=== PATIENT | female | born 1955 | race Caucasian/White ===

== ENCOUNTER 2016-04-16 18:41 | Emergency (ER) | payer OTHER ==
[~2016-04-16] VITALS: Ht 165.1 cm; Wt 116.0 kg
[2016-04-16 18:47] VITALS: TEMP 36.7; Ht 165.1 cm; Wt 116.0 kg
[2016-04-16 19:12] LABS: BASO % 0.2 %; BASO ABS # 0.03 K/uL (0-0.2); COMPLETE YES; EOS % 0.8 %; HEMATOCRIT 47.4 % (37-47); IG% 0.2 %; LYMPH % 13.3 %; MEAN CELL VOLUME 88.8 fL (80-100); MEAN CORPUSCULAR HEMOGLOBIN 30.1 pg (25-34); MONO % 9.7 %; NEUT % 75.8 %; PLATELET COUNT 251 K/uL (130-400); RED BLOOD COUNT 5.34 M/uL (4.2-5.4); WHITE BLOOD COUNT 13.54 K/uL (4.8-10.8)
[2016-04-16 19:15] LABS: URINE APPEARANCE CLEAR (CLEAR); URINE BILIRUBIN NEG (NEG); URINE COLOR YELLOW; URINE EPITHELIAL CELL AUTO 20-30 /lpf (0-5); URINE NITRITE NEG (NEG); URINE PH 7.5 (4.5-7.5); URINE SPECIFIC GRAVITY 1.004 (1.000-1.030); UROBILINOGEN NEG (NEG); ZZUR CULT IF INDIC CLEAN CATCH NO
[2016-04-16 19:27] LABS: BUN/CREATININE RATIO 9.7 (10-20); CALCIUM 9.3 mg/dl (8.5-10.1); POTASSIUM 3.3 mmol/L (3.5-5.1)
[2016-04-16 19:28] LABS: MANUAL MICROSCOPIC REQUIRED? NO; REVIEW REQ? NO
[2016-04-16] MEDS ORDERED: MoRPHine SULFATE 10 MG/ML CARP/VIAL IV STA (19:32)
[2016-04-16] MEDS ORDERED: SODIUM CHLORIDE 0.9% 1000ML 1,000 ML IV STA (19:34)
[2016-04-16] MEDS ORDERED: ONDANSETRON INJ 2 MG/ML 2 ML VIAL IV STA (19:41)
[2016-04-16] MEDS ORDERED: CARV3.122 PO (20:00)
[2016-04-16] MEDS ORDERED: ONDA4TAB46 PO (20:00)
[2016-04-16] MEDS ORDERED: AMLO-114 PO (20:00)
[2016-04-16] MEDS ORDERED: OXYC-164 PO (20:00)
[2016-04-16] MEDS ORDERED: PRLSR20 PO (20:00)
[2016-04-16] MEDS ORDERED: ACET-1256 PO (20:00)
[2016-04-16] MEDS ORDERED: PEDICHW50 PO (20:00)
[2016-04-16] MEDS ORDERED: ALLO100T PO (20:00)
[2016-04-16] MEDS ORDERED: CITA40TA12 PO (20:00)
[2016-04-16] MEDS ORDERED: OPTIRAY 320 IV PRN (21:45)
--- NOTE | 2016-04-16 22:02 | DIAGNOSTIC IMAGING REPORT ---
CT OF THE ABDOMEN AND PELVIS WITH CONTRAST CLINICAL HISTORY: Left sided abdominal pain status post gastric bypass. COMPARISON STUDY: None. TECHNIQUE: Following IV administration of 117 mL of Optiray-320, axial images of the abdomen and pelvis were obtained from the lung bases to the proximal femurs. Images were reviewed in the axial, sagittal, and coronal planes. IV contrast was administered without complication. Oral contrast was administered. CT DOSE: 1612.32 mGy.cm FINDINGS: A 4 mm proximal left ureteral calculus results in mild left hydronephrosis. There is mild left perinephric infiltration. No additional ureteral calculi are identified. Note is made of a 3 mm calculus within the lower pole of the right kidney. The liver, spleen, adrenal glands and pancreas are unremarkable. There are findings consistent with gastric bypass. There is no evidence for a bowel obstruction. The appendix is normal. There is no lymphadenopathy. No suspicious skeletal lesions are identified. There is evidence for a ventral hernia repair with mesh. IMPRESSION: 1. 4 mm proximal left ureteral calculus with resultant mild left hydronephrosis and perinephric infiltration. 2. 3 mm right renal calculus. 4. Status post gastric bypass. No bowel obstruction. Normal appendix. Electronically signed by: Mendez Pastrana M.D. 04/16/2016 10:00 PM Dictated Date/Time: 04/16/2016 9:52 PM
[2016-04-16] MEDS ORDERED: TAMS0.4C38 PO (22:24)
[2016-04-16] MEDS ORDERED: TAMSULOSIN HCL 0.4 MG CAP PO ONE (22:30)
[2016-04-16 22:40] VITALS: BP 140/91; PULSE 80; O2SAT 94
--- NOTE | 2016-04-16 22:47 | EMERGENCY ROOM VISIT NOTE ---
History Report prepared by Elia: Donnie Penny Under the Supervision of: Dr. John Ramirez D.O. First contact with patient: 18:56 Chief Complaint: ABDOMINAL PAIN Stated Complaint: ABD PAIN Nursing Triage Summary: pt to the ED with c/o left sided abd pain and fullness that started today History of Present Illness The patient is a 60 year old female who presents to the Emergency Room with complaints of persistent left sided abdominal pain beginning about 3 hours ago. She notes she started with solid foods yesterday and had a normal bowel movement yesterday, but has not had a bowel movement today. She describes her pain as "pressure". She has had some dry heaving, and chills. The patient denies having any back pain or urinary symptoms. She tried an Enema which did not relieve her symptoms. The patient reports having a history of gastric bypass due to obesity in January of 2016, and a history of spinal stenosis. She states she still has her appendix. The patient has not taken any Tylenol or Motrin today. No fevers greater than 100.4, chest pain or shortness of breath. Source of History: patient Onset: about 3 hours ago Position: abdomen (left-sided) Quality: pressure Timing: other (persistent) Associated Symptoms: + chills, No back pain, No urinary symptoms Note: The patient reports having dry heaving. Review of Systems See HPI for pertinent positives & negatives. A total of 10 systems reviewed and were otherwise negative. Past Medical & Surgical Medical Problems: (1) History of spinal stenosis Surgical Problems: (1) History of gastric bypass Family History No pertinent family history stated. Current/Historical Medications Scheduled Allopurinol (Zyloprim), 100 MG PO BID Amlodipine (Norvasc), 10 MG PO DAILY Carvedilol (Coreg), 3.125 MG PO BID Citalopram Hydrobromide (Celexa), 40 MG PO DAILY Omeprazole (Prilosec), 20 MG PO DAILY Pediatric Multiple Vitamin W/ (Flintstones Chewable), 1 TAB PO BID Tamsulosin Hcl (Flomax), 0.4 MG PO DAILY Scheduled PRN Acetaminophen (Tylenol), 1,000 MG PO Q6 PRN for Pain Oxycodone Hcl (Oxycodone Hcl), 1 TAB PO QID PRN for Pain Allergies Coded Allergies: Tetanus Toxoid (Verified Allergy, Severe, SWOLLRN ARM, BLOTCHES, 04/16/16) Physical Exam Vital Signs Date Time Temp Pulse Resp B/P Pulse Ox O2 Delivery O2 Flow Rate FiO2 04/16/16 21:52 80 18 150/109 95 Room Air 04/16/16 20:33 97 18 161/103 97 Room Air 04/16/16 18:47 36.7 106 20 165/84 98 Room Air Physical Exam GENERAL: Sitting in bed, disheveled, nontoxic. EYE EXAM: normal conjunctiva OROPHARYNX: no exudate, no erythema, lips, buccal mucosa, and tongue normal and mucous membranes are moist NECK: supple, no nuchal rigidity, no adenopathy, non-tender LUNGS: Clear to auscultation. Normal chest wall mechanics HEART: no murmurs, S1 normal and S2 normal ABDOMEN: abdomen soft; mild diffuse tenderness; normo-active bowel sounds, no masses, no rebound or guarding. Multiple old abdominal incisions present. BACK: Back is symmetrical on inspection and there is no deformity, no midline tenderness, no CVA tenderness. SKIN: no rashes and no bruising UPPER EXTREMITIES: upper extremities are grossly normal. LOWER EXTREMITIES: No pitting edema. NEURO EXAM: Normal sensorium, cranial nerves II-XII grossly intact, normal speech, no gross weakness of arms, no gross weakness of legs. Gross sensation intact. Medical Decision & Procedures ER Provider Diagnostic Interpretation: Xray results per the radiologist and my interpretation. Other results have been interpreted by the radiologist and reviewed by me. CT OF THE ABDOMEN AND PELVIS WITH CONTRAST FINDINGS: A 4 mm proximal left ureteral calculus results in mild left hydronephrosis. There is mild left perinephric infiltration. No additional ureteral calculi are identified. Note is made of a 3 mm calculus within the lower pole of the right kidney. The liver, spleen, adrenal glands and pancreas are unremarkable. There are findings consistent with gastric bypass. There is no evidence for a bowel obstruction. The appendix is normal. There is no lymphadenopathy. No suspicious skeletal lesions are identified. There is evidence for a ventral hernia repair with mesh. IMPRESSION: 1. 4 mm proximal left ureteral calculus with resultant mild left hydronephrosis and perinephric infiltration. 2. 3 mm right renal calculus. 4. Status post gastric bypass. No bowel obstruction. Normal appendix. Electronically signed by: Mendez Pastrana M.D. 04/16/2016 10:00 PM Dictated Date/Time: 04/16/2016 9:52 PM Laboratory Results 04/16/16 19:00 Red Blood Count 5.34, Mean Corpuscular Volume 88.8, Mean Corpuscular Hemoglobin 30.1, Mean Corpuscular Hemoglobin Concent 34.0, Mean Platelet Volume 13.0, Neutrophils (%) (Auto) 75.8, Lymphocytes (%) (Auto) 13.3, Monocytes (%) (Auto) 9.7, Eosinophils (%) (Auto) 0.8, Basophils (%) (Auto) 0.2, Neutrophils # (Auto) 10.26, Lymphocytes # (Auto) 1.80, Monocytes # (Auto) 1.31, Eosinophils # (Auto) 0.11, Basophils # (Auto) 0.03 04/16/16 19:00 Test 04/16/16 19:00 04/16/16 19:05 White Blood Count 13.54 K/uL (4.8-10.8) Red Blood Count 5.34 M/uL (4.2-5.4) Hemoglobin 16.1 g/dL (12.0-16.0) Hematocrit 47.4 % (37-47) Mean Corpuscular Volume 88.8 fL (80-100) Mean Corpuscular Hemoglobin 30.1 pg (25-34) Mean Corpuscular Hemoglobin Concent 34.0 g/dl (32-36) Platelet Count 251 K/uL (130-400) Mean Platelet Volume 13.0 fL (7.4-10.4) Neutrophils (%) (Auto) 75.8 % Lymphocytes (%) (Auto) 13.3 % Monocytes (%) (Auto) 9.7 % Eosinophils (%) (Auto) 0.8 % Basophils (%) (Auto) 0.2 % Neutrophils # (Auto) 10.26 K/uL (1.4-6.5) Lymphocytes # (Auto) 1.80 K/uL (1.2-3.4) Monocytes # (Auto) 1.31 K/uL (0.11-0.59) Eosinophils # (Auto) 0.11 K/uL (0-0.5) Basophils # (Auto) 0.03 K/uL (0-0.2) RDW Standard Deviation 46.0 fL (36.4-46.3) RDW Coefficient of Variation 14.1 % (11.5-14.5) Immature Granulocyte % (Auto) 0.2 % Immature Granulocyte # (Auto) 0.03 K/uL (0.00-0.02) Anion Gap 12.0 mmol/L (3-11) Est Creatinine Clear Calc Drug Dose 78.0 ml/min Estimated GFR () 71.9 Estimated GFR (Non- 62.1 BUN/Creatinine Ratio 9.7 (10-20) Calcium Level 9.3 mg/dl (8.5-10.1) Total Bilirubin 0.6 mg/dl (0.2-1) Direct Bilirubin 0.2 mg/dl (0-0.2) Aspartate Amino Transf (AST/SGOT) 29 U/L (15-37) Alanine Aminotransferase (ALT/SGPT) 36 U/L (12-78) Alkaline Phosphatase 89 U/L (45-117) Total Protein 7.7 gm/dl (6.4-8.2) Albumin 3.7 gm/dl (3.4-5.0) Lipase 50 U/L (73-393) Urine Color YELLOW Urine Appearance CLEAR (CLEAR) Urine pH 7.5 (4.5-7.5) Urine Specific [place] 1.004 (1.000-1.030) Urine Protein NEG (NEG) Urine Glucose (UA) NEG (NEG) Urine Ketones TRACE (NEG) Urine Occult Blood 3+ (NEG) Urine Nitrite NEG (NEG) Urine Bilirubin NEG (NEG) Urine Urobilinogen NEG (NEG) Urine Leukocyte Esterase TRACE (NEG) Urine WBC (Auto) 1-5 /hpf (0-5) Urine RBC (Auto) >30 /hpf (0-4) Urine Hyaline Casts (Auto) 1-5 /lpf (0-5) Urine Epithelial Cells (Auto) 20-30 /lpf (0-5) Urine Bacteria (Auto) NEG (NEG) Laboratory results per my review. Medications Administered Medications (Trade) Dose Ordered Sig/Armani Route Start Time Stop Time Status Last Admin Dose Admin Morphine Sulfate 6 mg 6 mg NOW STAT IV 04/16/16 19:32 04/16/16 19:34 DC 04/16/16 19:44 6 MG Sodium Chloride (Nss 1000ml) 1,000 ml @ 999 mls/hr Q1H1M STAT IV 04/16/16 19:34 04/16/16 20:34 DC 04/16/16 19:44 999 MLS/HR Ondansetron HCl (Zofran Inj) 4 mg NOW STAT IV 04/16/16 19:41 04/16/16 19:42 DC 04/16/16 19:44 4 MG ED Course ED COURSE: Vital signs were reviewed and showed hypertensive, and tachycardic. The patients medical record was reviewed The above diagnostic studies were performed and reviewed. ED treatments and interventions as stated above. 1925: The patient was evaluated in room A2. A complete history and physical examination was performed. 1931: Ordered Morphine Sulfate 6 mg IV. 1933: Ordered NSS 1,000 ml @ 999 mls/hr IV. 1940: Ordered Zofran Inj 4 mg IV. 2101: I reassessed the patient and she is feeling better. 2229: Ordered Flomax Cap 0.4 mg PO. 2234: Upon reevaluation, the patient is hemodynamically stable.I discussed my findings with the patient and she understands and agrees with the treatment plan. Based on the patients age, coexisting illnesses, exam and lab findings the decision to treat as an outpatient was made. The patient remained stable while under my care. The patient appeared well at the time of discharge. Medical Decision Differential diagnoses includes but is not limited to gastritis, peptic ulcer disease, GERD, gallbladder disease, pancreatitis, small bowel obstruction, acute coronary syndrome, pericarditis, ischemic bowel, irritable bowel disease, irritable bowel syndrome, appendicitis, diverticulitis, malignancy, hernia, urinary tract infection, torsion, /ectopic (if female), perforation, trauma, infectious. Patient is a 58-year-old female says past gastric bypass that presents the ER for abdominal pain and no bowel movement today. Vitals are stable without significant fever greater than 100.4. Abdominal exam is benign. No signs peritonitis. Pain is located on the left side of her abdomen going through to her back. CT of her abdomen pelvis performed with IV and oral contrast shows a 3-4 millimeter left proximal renal stone with mild hydronephrosis. UA was clear with exception of hematuria. Pain was controlled with IV narcotics. She is given a small dose Zofran. She felt significantly better. There is no signs of infection on her UA. She was updated in regards to the findings and was comfortable. She is discharged with Flomax and to follow up with urology. She notes she does have OxyIR at home and consequently I did not give her any additional narcotics as she notes that she has a 3 month supply of this at this time. I stressed the importance for returning for any fevers, persistent nausea vomiting, unable to eat or drink, or any other concerning signs or symptoms from her standpoint. She is given urology's phone number to call tomorrow to set up appointment. I do favor the leukocytosis likely secondary to the vomiting/pain. Discussed with Pt concerning signs and symptoms to watch out for. Pt was instructed to follow up with their PCP and discussed with the patient their option to return to the ED at anytime for persistent or worsening symptoms. The appropriate anticipatory guidance and out-patient management, including indications for return to the emergency department, were explained at length to the patient and understood. Impression Primary Impression: Renal colic Additional Impressions: Hypokalemia Leukocytosis Scribe Attestation The scribe's documentation has been prepared under my direction and personally reviewed by me in its entirety. I confirm that the note above accurately reflects all work, treatment, procedures, and medical decision making performed by me. Departure Information Dispostion Home / Self-Care Prescriptions Tamsulosin Hcl (FLOMAX) 0.4 Mg Cap 0.4 MG PO DAILY, #10 CAP Prov: John Ramirez, 04/16/16 Referrals Bernard Dooley M.D. (PCP) Patient Instructions ED Stone Renal W Colic, My [facility] Additional Instructions Please follow up with your primary care doctor with in the next 24 hours. Any worsening of your symptoms, please return to the ED immediately. This includes any fevers greater than 100.4, persistent nausea vomiting, worsening abdominal pain, unable to keep down your narcotics, or any other concerning signs or symptoms from your standpoint. Again if you have a fever greater than 100.4F he needs to immediately return to the ER. You were given medications during this visit that will inhibit your ability to drive, operate machinery and work. Please do NOT drive, operate machinery or work for the next 12hrs. Please take Flomax as prescribed. Please follow up with urology and call them tomorrow morning to schedule appointment. Problem Qualifiers Additional Impressions: Leukocytosis Leukocytosis type: unspecified Qualified Codes: D72.829 - Elevated white blood cell count, unspecified
== END 2016-04-16 22:41 | disposition home or self-care (01) ==
LOC: C.EDB 18:42 → C.EDA 22:41
DX: N23 Unspecified renal colic (principal); N13.30 Unspecified hydronephrosis; E87.6 Hypokalemia; D72.829 Elevated white blood cell count, unspecified; E66.9 Obesity, unspecified; Z98.84 Bariatric surgery status; Z79.899 Other long term (current) drug therapy

== ENCOUNTER → 2016-07-23 | Outpatient (CLI) | payer OTHER ==
[~2016-07-23] MED LIST: ACET-1256 PO; ALLO100T PO; AMLO-114 PO; CARV3.122 PO; CITA40TA12 PO; OXYC-164 PO; PEDICHW50 PO; PRLSR20 PO
== END | disposition home or self-care (01) ==
LOC: C.MAMM 10:51
PROVIDERS: ATTEND Orthopaedic Surgery
DX: M81.0 Age-related osteoporosis without current pathological fracture (principal)

== ENCOUNTER 2019-01-23 15:35 | Inpatient (IN) ==
[2019-01-23] MEDS ORDERED: SODIUM CHLORIDE 0.9% 1000ML 1,000 ML IV ONE ×2 (15:56→18:59)
[2019-01-23] MEDS ORDERED: ACETAMINOPHEN 1,000 MG/100 ML VIAL IV STA (15:56)
--- NOTE | 2019-01-23 16:17 | XRay Report ---
XR chest 1V portable HISTORY: 63 years-old Female Sepsis acute sepsis COMPARISON: CT abdomen pelvis 04/16/2016 TECHNIQUE: Portable AP view of the chest FINDINGS: Cardiomediastinal and hilar silhouettes are within normal limits. Minimal linear subsegmental left urszula ng base atelectasis. There is no pneumothorax, pleural effusion, focal airspace consolidation or over t pulmonary edema. Bones of the chest appear grossly intact. Mild convex right curvature of the midth oracic spine. IMPRESSION: No acute process. The above report was generated using voice recognition software. It may contain grammatical, syntax o r spelling errors. Electronically signed by: Duc Sanchez M.D. 01/23/2019 4:16 PM
[2019-01-23 16:30] LABS: Hematocrit (blood only) 41.5 % (37-47); Hemoglobin 13.8 g/dL (12.0-16.0); Mean Corpuscular Hemoglobin 30.3 pg (25-34); Mean Corpuscular Hgb Conc 33.3 g/dL (32-36); Mean Corpuscular Volume 91.2 fL (80-100); Mean Platelet Volume 12.6 fL (7.4-10.4); Platelet Count 172 K/uL (130-400); RDW Coefficient of Variation 14.2 % (11.5-14.5); RDW Standard Deviation 47.4 fL (36.4-46.3); Red Blood Count 4.55 M/uL (4.2-5.4)
[2019-01-23 16:41] LABS: INR 1.1 (0.9-1.1); Partial Thromboplastin Ratio 1.2; Partial Thromboplastin Time 33.6 Seconds (21.0-31.0)
--- NOTE | 2019-01-23 16:46 | CT Scan Report ---
ABDOMEN AND PELVIS CT WITHOUT CONTRAST CT DOSE: 1252.20 mGy.cm HISTORY: Acute right lower quadrant and right flank pain with fever febrile tachy r cva tenderness r lq pain TECHNIQUE: Multiaxial CT images of the abdomen and pelvis were performed without contrast. A dose lo wering technique was utilized adhering to the principles of ALARA. COMPARISON STUDY: CT abdomen and pelvis 04/16/2016 FINDINGS: Lung bases are generally clear. There is no pneumatosis or pneumoperitoneum. Imaged inferior cardiac chambers appear unremarkable. Limited evaluation of the solid abdominal organs without the use of IV contrast. Mild to moderate pneumobilia. Common bile duct is mildly dilated at 8 mm. No choledocholith iasis identified. Mild gallbladder distention with equivocal gallbladder wall thickening, gallbladder sludge and cholelithiasis. Liver is otherwise unremarkable. Spleen and adrenal glands are within nor mal limits. Moderate analyzed pancreatic atrophy. Nonspecific bilateral perinephric stranding. No renal or ureteral calculi or significant obstructive uropathy identified. There is suggestion of mild bilateral urothelial thickening of the collecting sy stems. Partial distention of the urinary bladder. Uterus and adnexa are unremarkable. Calcified plaqu e of the abdominal aorta without aneurysm. No adenopathy. Postoperative changes from prior gastric by pass. No small bowel obstruction. There is no bowel wall thickening. Noninflamed appendix. Postoperat lisette changes of the ventral abdominal wall with mild progressive stranding with slightly increased att enuation of the tissues of the anterior subcutaneous wall. No drainable fluid collection. Degenerativ e changes of the spine, pelvis and hips. Lumbar levoscoliosis. No acute fracture identified. Grade 1 anterolisthesis L4 on L5 is likely degenerative. IMPRESSION: 1. No renal or ureteral calculi or obstructive uropathy. 2. Nonspecific bilateral perinephric stranding with suggestion of bilateral urothelial thickening, ri ght greater than left. Correlate with urinalysis to exclude infectious etiology. 3. Cholelithiasis with gallbladder sludge,, gallbladder distention and equivocal wall thickening. Thi s finding could be correlated with right upper quadrant abdominal ultrasound and clinical evaluation to exclude acute cholecystitis. 4. Progressive subcutaneous stranding of the lower anterior abdominal wall may be related to scarring from prior surgery with infectious or posttraumatic etiology also within the differential. 5. Additional findings as above. Electronically signed by: Duc Sanchez M.D. 01/23/2019 4:44 PM
[2019-01-23 16:47] LABS: Albumin Level 2.4 gm/dl (3.4-5.0); BUN Creatinine Ratio 22.5 (10-20); Bilirubin Direct 0.3 mg/dl (0-0.2); Calcium 8.8 mg/dl (8.5-10.1); Creatinine Clr Calc Pharmacy 57.5 ml/min; Est GFR (African American) 53.3; Est GFR (Non-African American) 45.9; Magnesium 2.1 mg/dl (1.8-2.4); Potassium 3.2 mmol/L (3.5-5.1)
[2019-01-23 16:49] LABS: Basophils # (auto) 0.01 K/uL (0-0.2); Basophils % (auto) 0.1 %; Dohle Bodies 1+; Eosinophils # (auto) 0.01 K/uL (0-0.5); Eosinophils % (auto) 0.1 %; Immature Granulocytes # (auto) 0.04 K/uL (0.00-0.02); Immature Granulocytes % (auto) 0.3 %; Lymphocytes % (auto) 4.4 %; Monocytes # (auto) 1.43 K/uL (0.11-0.59); Monocytes % (auto) 10.5 %; Neutrophils # (auto) 11.51 K/uL (1.4-6.5); Neutrophils % (auto) 84.6 %
[2019-01-23 16:50] LABS: Bilirubin,Total 0.7 mg/dl (0.2-1); Total Protein 7.1 gm/dl (6.4-8.2)
[2019-01-23 16:57] LABS: Appearance Urine Cloudy (Clear); Bacteria Urine Automated 3+ (Negative); Bilirubin Urine Negative (Negative); Blood Urine 3+ (Negative); Cast Urine Automated 0 /lpf (0-5); Color Urine Yellow; Epithelial Cell Urine Auto 20-30 /lpf (0-5); Glucose Urine UA Negative (Negative); Ketones Urine 1+ (Negative); Leukocyte Esterase Urine 3+ (Negative); Nitrite Urine Negative (Negative); Protein Urine 2+ (Negative); Specific Gravity Urine 1.015 (1.000-1.030); Urobilinogen Urine Negative (Negative); WBC Urine Automated >30 /hpf (0-5); pH Urine 5.5 (4.5-7.5)
[2019-01-23 17:31] LABS: Influenza A virus by PCR Neg for Influ A (Neg); Influenza B virus by PCR Neg for Influ B (Neg)
[2019-01-23] MEDS ORDERED: cefTRIAXone SODIUM 1,000 MG/50 ML BAG IV STA (17:31)
--- NOTE | 2019-01-23 18:18 | Ultrasound Report ---
US gallbladder HISTORY: 63 years-old Female ro rere acute right flank and right upper quadrant abdominal pain COMPARISON: CT abdomen and pelvis of same day TECHNIQUE: Multiple real-time sonographic images of the abdominal right upper quadrant were obtained assessing grayscale appearance and color flow FINDINGS: Pneumobilia redemonstrated. Common bile duct is mildly dilated measuring 1.0 cm. No choledocholithias is identified. No focal hepatic mass lesion. There is mild intrahepatic biliary ductal dilation. Gall bladder distention with moderate cholelithiasis and intraluminal gallbladder sludge. Bladder wall shannon sures in the upper limits of normal at 3 mm. No definite pericholecystic fluid. Sonographic Mccoy si gn reported as negative. Imaged right kidney is unremarkable without hydronephrosis. IMPRESSION: 1. Distended gallbladder filled with sludge and cholelithiasis is noted with the wall measuring in th e upper limits of normal. There is no definite pericholecystic fluid and the sonographic Mccoy sign was reported as negative. Findings are equivocal for acute cholecystitis. Correlate clinically. 2. Mild intrahepatic and extrahepatic biliary ductal dilation with pneumobilia. Findings may be secon dahlia to incompetent sphincter of Oddi versus gas forming organism with cholangitis. Correlate clinica lly.. The above report was generated using voice recognition software. It may contain grammatical, syntax o r spelling errors. Electronically signed by: Duc Sanchez M.D. 01/23/2019 6:16 PM
[2019-01-23] MEDS ORDERED: PIPERACILLIN/TAZOBACTAM 4.5 GM/120 ML BAG IV ONE (18:32)
[2019-01-23] MEDS ORDERED: ACETAMINOPHEN 325 MG TAB PO PRN (18:55)
--- NOTE | 2019-01-23 19:10 | History & Physical Report ---
Date of Service This is a 63 year old female who was in usual state of health 2 weeks ago and the developing fevers at least for 4 days and there was association with right upper abdomen pain and in regards to the fever she was was taking aspirin as antipyretic. Patient reports poor oral appetite. Instead of solid food, she has been ingesting liquids. does not associate eating with exacerbating the abdominal pain. denies vomiting. Patient noted to have fever and tachycardia in the ED. patient denies chest pain. no palpitations. her heart rates improved with IV fluids. patient breathing on room air. denies shortness of breath. denies changes in urination or with bowel movements. no headache. no dizziness Denies allergy history Family History: denies pertinent family history January 23, 2019 Assessment & Plan (1) Acute cholecystitis: -This is a 63 year old female who was in usual state of health 2 weeks ago and the developing fevers at least for 4 days and there was association with right upper abdomen pain and in regards to the fever she was was taking aspirin as antipyretic -in the ED, elevated body temperature of 38.2 F -CT abdomen on admission: "Cholelithiasis with gallbladder sludge, gallbladder distention and equivocal wall thickening. This finding could be correlated with right upper quadrant abdominal ultrasound and clinical evaluation to exclude acute cholecystitis." -in context of imaging and clinical findings with fever, patient likely has acute cholecystitis. -labs of normal bilirubin with mildly elevated alkaline phosphatase does not not necessarily suggest choledocholithiasis and will request general surgery consultation for cholecystectomy. will defer to general surgery whether or not they would need any additional biliary imaging before proceeding -patient may have liquid diet for now and will keep NPO after midnight while awaiting general surgery evaluations -patient was given 1 liter of IV fluids and 1 dose of ceftriaxone and Zosyn in the ED, will continue IV Zosyn every 8 hours for now, give 1 more liter bolus of IV fluids and then low dose IV fluids per hour -prn acetaminophen for fever -monitor tachycardia on telemetry History of gastric bypass surgery in the past Acute Kidney Injury -admission creatine of 1.22 which is above patient's previous outpatient labs of 0.8 -IV fluids, follow renal function Hypertension -continue home dose amlodipine and carvedilol History of depression -currently normal affect -continue home dose duloxetine Obesity with BMI of 39.8 -outpatient follow up on weight control DVT ppx: SCDs for now Full Code Status Mother Fartun [phone] Kendall mcintyre be following the patient starting on 01/24/19 History of Present Illness Primary Care Provider: Bernard Dooley MD Allergies Allergy/AdvReac Type Severity Reaction Status Date / Time tetanus toxoid, adsorbed Allergy Severe SWOLLRN Verified 01/23/19 17:36 ARM, BLOTCHES Home Medications Home Medications Medication Instructions Recorded Confirmed Type amlodipine 5 mg PO DAILY 01/23/19 01/23/19 History carvedilol 6.25 mg PO BID 01/23/19 01/23/19 History duloxetine 30 mg PO DAILY 01/23/19 01/23/19 History Past Med/Surg History Medical History History of kidney stones (Chronic) History of spinal stenosis (Chronic) Surgical History Hx of gastric bypass (Chronic) Social History Feels Safe at Home: Yes Smoking Status: Never smoker Review of Systems Review of Systems: All systems reviewed & are unremarkable except as noted in HPI & below Physical Exam Constitutional: cooperative Eyes: PERRL, conjunctivae normal, anicteric sclerae EOM intact bilaterally ENMT: external ear and nose normal, oropharynx normal Neck: normal visual inspection Respiratory: normal respiratory effort, lungs clear to auscultation Cardiovascular: Rate/Rhythm: + tachycardic Gastrointestinal (Abdomen): Inspection/Auscultation: abdomen normal to inspection and normal bowel sounds right upper quadrant tenderness to palpation Musculoskeletal: Head/Neck/Chest: normocephalic and head atraumatic Neurologic: PERRL, EOMI, accommodation nl, no face palsy, no dysarthria CN's II-XI intact bilaterally Psychiatric: A+Ox3, euthymic affect Results & Data Vital Signs (Past 12 Hours) Vital Signs Temp Pulse Resp BP Pulse Ox 01/23/19 18:15 121 H 21 127/92 01/23/19 18:14 101 H 16 01/23/19 17:45 99 H 21 126/96 01/23/19 17:40 94 H 12 01/23/19 17:30 103 H 15 133/94 01/23/19 17:20 104 H 22 01/23/19 17:15 109 H 16 131/101 H 01/23/19 17:10 111 H 16 11/02/19 17:00 118 H 20 139/93 01/23/19 16:50 115 H 13 01/23/19 16:45 118 H 18 124/86 01/23/19 16:40 126 H 16 149/104 H 01/23/19 15:51 96 01/23/19 15:40 38.2 C H 116 H 18 120/81 93 Code Status & VTE Plan VTE Prophylaxis Plan VTE Prophylaxis will be ordered: Yes
[2019-01-23] MEDS ORDERED: POTASSIUM CHLORIDE 20 MEQ TABCR PO STA (19:19)
--- NOTE | 2019-01-23 19:48 | Emergency Department Note ---
Entered by Eloisa Schmidt acting as a scribe for Mathew Oliveira History of Present Illness General Chief complaint: Kidney Stone Stated complaint: KIDNEY STONE Time Seen by Provider: 01/23/19 15:47 Source: patient History of Present Illness Onset (ago): hour(s) (earlier this morning) Location: abdomen (suspected kidney stone) Pain Consistency: + other (episode) Maximum Pain Intensity: 6 Relieved By: + none Associated symptoms: + denies other symptoms (blood in urine, blood in stools, and back pain), + fever/chills, + nausea/vomiting (positive nausea, negative vomiting) and + other (shaking, shivering, and abdominal pain) Treatments prior to arrival: aspirin The patient is a 63 year old F who presents to the Emergency Room with complaints of an episode of a suspected kidney stone that occurred earlier this morning. She states that she is currently experiencing shaking, shivering, nausea, abdominal pain, and a fever. She notes that her fever was at 103. She adds that she took aspirin, 4 hours ago, for pain. She denies currently experiencing vomiting, blood in urine, blood in stools, and back pain. She notes that she has a history of previous kidney stones and a gastric bypass surgery. She denies a surgical history of an appendectomy or a cholecystectomy. Home Medications Home Medications Medication Instructions Recorded Confirmed Type amlodipine 5 mg PO DAILY 01/23/19 01/23/19 History carvedilol 6.25 mg PO BID 01/23/19 01/23/19 History duloxetine 30 mg PO DAILY 01/23/19 01/23/19 History Allergies Allergy/AdvReac Type Severity Reaction Status Date / Time tetanus toxoid, adsorbed Allergy Severe SWOLLRN Verified 01/23/19 17:36 ARM, BLOTCHES Past Med/Surg History Medical History History of kidney stones (Chronic) History of spinal stenosis (Chronic) Surgical History Hx of gastric bypass (Chronic) Social History Feels Safe at Home: Yes Smoking Status: Never smoker Review of Systems See HPI for pertinent positives & negatives. and A total of 10 systems reviewed and were otherwise negative Physical Exam Vital Signs Vital Signs - 24 hr 01/23/19 15:40 01/23/19 15:51 01/23/19 16:40 Temperature 38.2 C H Temperature Source Oral Sepsis Recent Fever Within 48 Hours No Sepsis Action Taken by Nursing No Action Required Pulse Rate 116 H 126 H Pulse Rhythm Regular Pulse Strength Normal Respiratory Rate 18 16 Respiratory Effort / Characteristics Non-Labored Respiratory Depth Normal Respiratory Pattern Regular Blood Pressure 120/81 149/104 H Blood Pressure Mean 94 119 Pulse Oximetry 93 96 Oxygen Delivery Method Room Air Room Air 01/23/19 16:45 01/23/19 16:50 01/23/19 17:00 Temperature Temperature Source Sepsis Recent Fever Within 48 Hours Sepsis Action Taken by Nursing Pulse Rate 118 H 115 H 118 H Pulse Rhythm Pulse Strength Respiratory Rate 18 13 20 Respiratory Effort / Characteristics Respiratory Depth Respiratory Pattern Blood Pressure 124/86 139/93 Blood Pressure Mean 98 108 Pulse Oximetry Oxygen Delivery Method 01/23/19 17:10 01/23/19 17:15 01/23/19 17:20 Temperature Temperature Source Sepsis Recent Fever Within 48 Hours Sepsis Action Taken by Nursing Pulse Rate 111 H 109 H 104 H Pulse Rhythm Pulse Strength Respiratory Rate 16 16 22 Respiratory Effort / Characteristics Respiratory Depth Respiratory Pattern Blood Pressure 131/101 H Blood Pressure Mean 111 Pulse Oximetry Oxygen Delivery Method 01/23/19 17:30 01/23/19 17:40 01/23/19 17:45 Temperature Temperature Source Sepsis Recent Fever Within 48 Hours Sepsis Action Taken by Nursing Pulse Rate 103 H 94 H 99 H Pulse Rhythm Pulse Strength Respiratory Rate 15 12 21 Respiratory Effort / Characteristics Respiratory Depth Respiratory Pattern Blood Pressure 133/94 126/96 Blood Pressure Mean 107 106 Pulse Oximetry Oxygen Delivery Method 01/23/19 18:14 01/23/19 18:15 Temperature Temperature Source Sepsis Recent Fever Within 48 Hours Sepsis Action Taken by Nursing Pulse Rate 101 H 121 H Pulse Rhythm Pulse Strength Respiratory Rate 16 21 Respiratory Effort / Characteristics Respiratory Depth Respiratory Pattern Blood Pressure 127/92 Blood Pressure Mean 103 Pulse Oximetry Oxygen Delivery Method GENERAL: She is oriented to person, place, and time. She appears well-developed and well-nourished. She does not appear distressed. HENT: Exam performed. - Head: Normocephalic and atraumatic. - Right Ear: External ear normal. No mastoid tenderness. - Left Ear: External ear normal. No mastoid tenderness. - Mouth/Throat: The oropharynx is clear and moist. No trismus in the jaw. No dental abscesses or uvula swelling. No oropharyngeal exudate or tonsillar abscesses. EYES: Conjunctivae and EOM are normal. Pupils are equal, round, and reactive to light. Right eye exhibits no discharge. Left eye exhibits no discharge. No scl eral icterus. NECK: Normal range of motion. Neck supple. No JVD present. No spinous process tenderness present. No carotid bruit present. No rigidity. No tracheal deviation and normal range of motion present. No Brudzinski's sign and no Kernig's sign noted. CV: Tachycardic rate, regular rhythm, normal heart sounds and intact distal pulses. There is no peripheral edema. Palpable radial pulses bue. PULM/CHEST: Effort normal and breath sounds normal. No respiratory distress. No stridor. She has no wheezes. She has no rales. Chest Wall: She exhibits no tenderness. ABD: The abdomen is soft. Bowel sounds are normal. She has no distension. No mass is present. There is right-sided CVA and RLQ tenderness. There is no rebound, no guarding, no Mccoy's sign and no tenderness at McBurney's point. R ovsig negative. Abdomen is obese. MUSC/SKEL: Normal range of motion. There is no peripheral edema, tenderness or deformity. LYMPH: No cervical adenopathy. NEURO: She is alert and oriented to person, place, and time. She has normal strength. No cranial nerve deficit or sensory deficit. Coordination and gait normal. GCS eye subscore is 4. GCS verbal subscore is 5. GCS motor subscore is 6. cerbellar tests wnl. SKIN: Skin is warm and dry. She is not diaphoretic. PSYCH: She has a normal mood and affect. Her behavior is normal. Judgment and thought content normal. Course 1548: The patient was evaluated in room A10. A complete history and physical exam was performed. 1830: Labs show leukocytosis of 13.6. Lactic acid within normal limits. CT of the abdomen showed no ureteral stones. Urine appears infected. Rocephin 1 g IV piggyback ordered. CT of the abdomen showed cholelithiasis with sludge and equivocal gallbladder wall thickening. Subsequent ultrasound of the right upper quadrant was performed. The ultrasound showed a distended gallbladder filled with sludge and gallstones. The wall of the gallbladder it was measuring at the upper limits of normal. Mccoy sign negative sonographically. There is also mild intrahepatic and extrahepatic biliary duct dilatation with pneumobilia. 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 On repeat assessment, the patient is not jaundiced. She still does have pain on palpation of right upper quadrant however Mccoy sign is negative. It is not thought that the patient is suffering from a sending cholangitis as she does not have any evidence of jaundice. I reviewed the patient's case with Dr. Pratt, [facility] [place] [place]. He states that the patient should go to medicine. He states that he will be on consult.I reviewed the patient's case with Dr. Brannon Hodges, [facility] Hospitalist. Dr. Hodges recommends treating the patient with Zosyn in addition to the Rocephin that is Farhat been given. Zosyn ordered. He will evaluate the patient for further management. Administered Medications Piperacillin Sod/Tazobactam Sod (Zosyn) 4.5 gm in 120 mls @ 30 mls/hr IV NOW ONE Stop: 01/23/19 22:31 Last Admin: 01/23/19 18:54 Dose: 30 mls/hr Documented by: [id number] Discontinued Medications Acetaminophen (Ofirmev) 1,000 mg in 100 mls @ 400 mls/hr IV NOW STA Stop: 01/23/19 16:10 Last Infusion: 01/23/19 17:00 Dose: 0 mls/hr Documented by: [id number] Admin: 01/23/19 16:36 Dose: 400 mls/hr Documented by: [id number] Sodium Chloride (Nss 1000ml) 1,000 mls @ 999 mls/hr IV .Q1H1M ONE Stop: 01/23/19 16:56 Last Infusion: 01/23/19 17:54 Dose: 0 mls/hr Documented by: [id number] Admin: 01/23/19 16:36 Dose: 999 mls/hr Documented by: [id number] Ceftriaxone Sodium (Rocephin) 1,000 mg in 50 mls @ 100 mls/hr IV NOW STA Stop: 01/23/19 18:00 Last Infusion: 01/23/19 18:52 Dose: 0 mls/hr Documented by: [id number] Admin: 01/23/19 18:15 Dose: 100 mls/hr Documented by: [id number] Potassium Chloride (Klor-Con M20) 40 meq PO NOW STA Stop: 11/02/19 19:20 Last Admin: 01/23/19 19:23 Dose: 40 meq Documented by: [id number] Medical Decision Making Medical Records Attestation: I reviewed the patient's medical records. Home Medications Current Medication List: was personally reviewed by me Laboratory Data Attestation: I reviewed the patient's lab results. Result diagrams: 01/23/19 16:16 01/23/19 16:16 Lab Results 01/23/19 01/23/19 01/23/19 Range/Units 16:16 16:16 16:16 WBC 13.60 H (4.8-10.8) K/uL RBC 4.55 (4.2-5.4) M/uL Hgb 13.8 (12.0-16.0) g/dL Hct 41.5 (37-47) % MCV 91.2 (80-100) fL MCH 30.3 (25-34) pg MCHC 33.3 (32-36) g/dL RDW Std Deviation 47.4 H (36.4-46.3) fL RDW Coeff of Samara 14.2 (11.5-14.5) % Plt Count 172 (130-400) K/uL MPV 12.6 H (7.4-10.4) fL Immature Gran % (Auto) 0.3 % Neut % (Auto) 84.6 % Lymph % (Auto) 4.4 % [place] % (Auto) 10.5 % Eos % (Auto) 0.1 % Baso % (Auto) 0.1 % Immature Gran # (Auto) 0.04 H (0.00-0.02) K/uL Neut # (Auto) 11.51 H (1.4-6.5) K/uL Lymph # (Auto) 0.60 L (1.2-3.4) K/uL [place] # (Auto) 1.43 H (0.11-0.59) K/uL Eos # (Auto) 0.01 (0-0.5) K/uL Baso # (Auto) 0.01 (0-0.2) K/uL Dohle Bodies 1+ PT 11.0 (9.0-12.0) Seconds INR 1.1 (0.9-1.1) APTT 33.6 H (21.0-31.0) Seconds PTT Ratio 1.2 Sodium (136-145) mmol/L Potassium (3.5-5.1) mmol/L Chloride (98-107) mmol/L Carbon Dioxide (21-32) mmol/L Anion Gap (3-11) BUN (7-18) mg/dl Creatinine (0.6-1.2) mg/dl Est Cr Clr Drug Dosing ml/min Est GFR ( Amer) Est GFR (Non-Af Amer) BUN/Creatinine Ratio (10-20) Glucose (70-99) mg/dl Lactate 1.2 (0.4-2.0) mmol/L Calcium (8.5-10.1) mg/dl Magnesium (1.8-2.4) mg/dl Total Bilirubin (0.2-1) mg/dl Direct Bilirubin (0-0.2) mg/dl AST (15-37) U/L ALT (12-78) U/L Alkaline Phosphatase (45-117) U/L Total Protein (6.4-8.2) gm/dl Albumin (3.4-5.0) gm/dl Lipase (73-393) U/L Urine Color Urine Appearance (Clear) Urine pH (4.5-7.5) Ur Specific [place] (1.000-1.030) Urine Protein (Negative) Urine Glucose (UA) (Negative) Urine Ketones (Negative) Urine Blood (Negative) Urine Nitrite (Negative) Urine Bilirubin (Negative) Urine Urobilinogen (Negative) Ur Leukocyte Esterase (Negative) Urine WBC (Auto) (0-5) /hpf Urine RBC (Auto) (0-4) /hpf U Hyaline Cast (Auto) (0-5) /lpf U Epithel Cells (Auto) (0-5) /lpf Urine Bacteria (Auto) (Negative) Urine Yeast Influenza Type A (PCR) (Neg) Influenza Type B (PCR) (Neg) 01/23/19 01/23/19 01/23/19 Range/Units 16:16 16:45 16:45 WBC (4.8-10.8) K/uL RBC (4.2-5.4) M/uL Hgb (12.0-16.0) g/dL Hct (37-47) % MCV (80-100) fL MCH (25-34) pg MCHC (32-36) g/dL RDW Std Deviation (36.4-46.3) fL RDW Coeff of Samara (11.5-14.5) % Plt Count (130-400) K/uL MPV (7.4-10.4) fL Immature Gran % (Auto) % Neut % (Auto) % Lymph % (Auto) % [place] % (Auto) % Eos % (Auto) % Baso % (Auto) % Immature Gran # (Auto) (0.00-0.02) K/uL Neut # (Auto) (1.4-6.5) K/uL Lymph # (Auto) (1.2-3.4) K/uL [place] # (Auto) (0.11-0.59) K/uL Eos # (Auto) (0-0.5) K/uL Baso # (Auto) (0-0.2) K/uL Dohle Bodies PT (9.0-12.0) Seconds INR (0.9-1.1) APTT (21.0-31.0) Seconds PTT Ratio Sodium 135 L (136-145) mmol/L Potassium 3.2 L (3.5-5.1) mmol/L Chloride 101 (98-107) mmol/L Carbon Dioxide 26 (21-32) mmol/L Anion Gap 8.0 (3-11) BUN 28 H (7-18) mg/dl Creatinine 1.26 H (0.6-1.2) mg/dl Est Cr Clr Drug Dosing 57.5 ml/min Est GFR ( Amer) 53.3 Est GFR (Non-Af Amer) 45.9 BUN/Creatinine Ratio 22.5 H (10-20) Glucose 163 H (70-99) mg/dl Lactate (0.4-2.0) mmol/L Calcium 8.8 (8.5-10.1) mg/dl Magnesium 2.1 (1.8-2.4) mg/dl Total Bilirubin 0.7 (0.2-1) mg/dl Direct Bilirubin 0.3 H (0-0.2) mg/dl AST 15 (15-37) U/L ALT 16 (12-78) U/L Alkaline Phosphatase 139 H (45-117) U/L Total Protein 7.1 (6.4-8.2) gm/dl Albumin 2.4 L (3.4-5.0) gm/dl Lipase 25 L (73-393) U/L Urine Color Yellow Urine Appearance Cloudy A (Clear) Urine pH 5.5 (4.5-7.5) Ur Specific [place] 1.015 (1.000-1.030) Urine Protein 2+ H (Negative) Urine Glucose (UA) Negative (Negative) Urine Ketones 1+ H (Negative) Urine Blood 3+ H (Negative) Urine Nitrite Negative (Negative) Urine Bilirubin Negative (Negative) Urine Urobilinogen Negative (Negative) Ur Leukocyte Esterase 3+ H (Negative) Urine WBC (Auto) >30 H (0-5) /hpf Urine RBC (Auto) 10-30 H (0-4) /hpf U Hyaline Cast (Auto) 0 (0-5) /lpf U Epithel Cells (Auto) 20-30 H (0-5) /lpf Urine Bacteria (Auto) 3+ H (Negative) Urine Yeast Not Reportable Influenza Type A (PCR) Neg for Influ A (Neg) Influenza Type B (PCR) Neg for Influ B (Neg) Imaging Data Radiologist's Impression: Radiology results as stated below per my review and the radiologist's interpretation: XR chest 1V portable HISTORY: 63 years-old Female Sepsis acute sepsis COMPARISON: CT abdomen pelvis 04/16/2016 TECHNIQUE: Portable AP view of the chest FINDINGS: Cardiomediastinal and hilar silhouettes are within normal limits. Minimal linear subsegmental left lung base atelectasis. There is no pneumothorax, pleural effusion, focal airspace consolidation or overt pulmonary edema. Bones of the chest appear grossly intact. Mild convex right curvature of the midthoracic spine. IMPRESSION: No acute process. The above report was generated using voice recognition software. It may contain grammatical, syntax or spelling errors. Electronically signed by: Duc Sanchez M.D. 01/23/2019 4:16 PM [address]EN AND PELVIS CT WITHOUT CONTRAST CT DOSE: 1252.20 mGy.cm HISTORY: Acute right lower quadrant and right flank pain with fever febrile tachy r cva tenderness rlq pain TECHNIQUE: Multiaxial CT images of the abdomen and pelvis were performed without contrast. A dose lowering technique was utilized adhering to the principles of ALARA. COMPARISON STUDY: CT abdomen and pelvis 04/16/2016 FINDINGS: Lung bases are generally clear. There is no pneumatosis or pneumoperitoneum. Imaged inferior cardiac chambers appear unremarkable. Limited evaluation of the solid abdominal organs without the use of IV contrast. Mild to moderate pneumobilia. Common bile duct is mildly dilated at 8 mm. No choledocholithiasis identified. Mild gallbladder distention with equivocal gallbladder wall thickening, gallbladder sludge and cholelithiasis. Liver is otherwise unremarkable. Spleen and adrenal glands are within normal limits. Moderate analyzed pancreatic atrophy. Nonspecific bilateral perinephric stranding. No renal or ureteral calculi or significant obstructive uropathy identified. There is suggestion of mild bilateral urothelial thickening of the collecting systems. Partial distention of the urinary bladder. Uterus and adnexa are unremarkable. Calcified plaque of the abdominal aorta without aneurysm. No adenopathy. Postoperative changes from prior gastric bypass. No small bowel obstruction. There is no bowel wall thickening. Noninflamed appendix. Postoperative changes of the ventral abdominal wall with mild progressive stranding with slightly increased attenuation of the tissues of the anterior subcutaneous wall. No drainable fluid collection. Degenerative changes of the spine, pelvis and hips. Lumbar levoscoliosis. No acute fracture identified. Grade 1 anterolisthesis L4 on L5 is likely dege nerative. IMPRESSION: 1. No renal or ureteral calculi or obstructive uropathy. 2. Nonspecific bilateral perinephric stranding with suggestion of bilateral urothelial thickening, right greater than left. Correlate with urinalysis to exclude infectious etiology. 3. Cholelithiasis with gallbladder sludge,, gallbladder distention and equivocal wall thickening. This finding could be correlated with right upper quadrant abdominal ultrasound and clinical evaluation to exclude acute cholecystitis. 4. Progressive subcutaneous stranding of the lower anterior abdominal wall may be related to scarring from prior surgery with infectious or posttraumatic etiology also within the differential. 5. Additional findings as above. Electronically signed by: Duc Sanchez M.D. 01/23/2019 4:44 PM US gallbladder HISTORY: 63 years-old Female ro rere acute right flank and right upper quadrant abdominal pain COMPARISON: CT abdomen and pelvis of same day TECHNIQUE: Multiple real-time sonographic images of the abdominal right upper quadrant were obtained assessing grayscale appearance and color flow FINDINGS: Pneumobilia redemonstrated. Common bile duct is mildly dilated measuring 1.0 cm. No choledocholithiasis identified. No focal hepatic mass lesion. There is mild intrahepatic biliary ductal dilation. Gallbladder distention with moderate cholelithiasis and intraluminal gallbladder sludge. Bladder wall measures in the upper limits of normal at 3 mm. No definite pericholecystic fluid. Sonographic Mccoy sign reported as negative. Imaged right kidney is unremarkable without hydronephrosis. IMPRESSION: 1. Distended gallbladder filled with sludge and cholelithiasis is noted with the wall measuring in the upper limits of normal. There is no definite pericholecystic fluid and the sonographic Mccoy sign was reported as negative. Findings are equivocal for acute cholecystitis. Correlate clinically. 2. Mild intrahepatic and extrahepatic biliary ductal dilation with pneumobilia. Findings may be secondary to incompetent sphincter of Oddi versus gas forming organism with cholangitis. Correlate clinically.. The above report was generated using voice recognition software. It may contain grammatical, syntax or spelling errors. Electronically signed by: Duc Sanchez M.D. 01/23/2019 6:16 PM Blood Pressure Blood Pressure Findings: Elevated blood pressure Blood Pressure Disposition: elevated BP felt to be situational MDM Narrative Labs show leukocytosis of 13.6. Lactic acid within normal limits. CT of the abdomen showed no ureteral stones. Urine appears infected. Rocephin 1 g IV piggyback ordered. CT of the abdomen showed cholelithiasis with sludge and equivocal gallbladder wall thickening. Subsequent ultrasound of the right upper quadrant was performed. The ultrasound showed a distended gallbladder filled with sludge and gallstones. The wall of the gallbladder it was measuring at the upper limits of normal. Mccoy sign negative sonographically. There is also mild intrahepatic and extrahepatic biliary duct dilatation with pneumobilia. 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 On repeat assessment, the patient is not jaundiced. She still does have pain on palpation of right upper quadrant however Mccoy sign is negative. It is not thought that the patient is suffering from a sending cholangitis as she does not have any evidence of jaundice. I reviewed the patient's case with Dr. Pratt, [facility] [place] [place]. He states that the patient should go to medicine. He states that he will be on consult.I reviewed the patient's case with Dr. Brannon Hodges, [facility] Hospitalist. Dr. Hodges recommends treating the patient with Zosyn in addition to the Rocephin that is Farhat been given. Zosyn ordered. He will evaluate the patient for further management. Impression & Plan UTI (urinary tract infection), Cholecystitis Discharge Plan Visit Data Chief Complaint: Kidney Stone Stated Complaint: KIDNEY STONE ED Provider: Mathew Oliveira Discharge Problem: UTI (urinary tract infection), Cholecystitis Patient Disposition: Admitted As Inpatient Forms Stand Alone Forms: My [facility] Prescriptions Prescriptions: No Action carvedilol 3.125 mg Tablet 6.25 mg PO BID RF: 0 amlodipine 5 mg Tablet 5 mg PO DAILY RF: 0 duloxetine 30 mg Capsule,Delayed Release(Dr/Ec) 30 mg PO DAILY RF: 0 Referrals Referrals: Bernard Dooley MD [Primary Care Provider] - Discharge Problem: UTI (urinary tract infection) Qualifiers: Urinary tract infection type: site unspecified Hematuria presence: with hematuria Qualified Code(s): N39.0 - Urinary tract infection, site not specified The scribe's documentation has been prepared under my direction and personally reviewed by me in its entirety. I confirm that the note above accurately reflects all work, treatment, procedures, and medical decision making performed by me.
--- NOTE | 2019-01-23 20:51 | Surgery Consultation ---
Date of Consultation January 23, 2019 Assessment & Plan (1) Pain: This patient has symptomatology that began a CVA tenderness and appears to have a urinary tract infection and on CT scan has fat stranding around the kidney that may be indicative of pyelonephritis. She also has a history of n ephrolithiasis. She had a temperature elevation to 103 which would be consistent with pyelonephritis. She does have right upper quadrant pain but that may be related to the kidney issue as well. She has a mildly dilated biliary tract etiology of which is unclear. The findings on ultrasound and CAT scan are somewhat indicative of a gallbladder issue but I am more suspicious that her symptoms are related to her tract. I would recommend a hepatobiliary scan to further delineate the possibility of acute cholecystitis. History of Present Illness Reason for Consultation: Back pain, abdominal pain, nausea Requesting Physician: Brannon Hodges MD Attending Physician: Brannon Hodges MD History of Present Illness Been asked by Dr. Hodges to see this 63-year-old female presented to the emergency room with a complaint of pain, fever and nausea. The patient states that the pain began with bilateral costovertebral angle pain. The discomfort was more on the right than on the left. It eventually then radiated around towards the anterior abdominal wall. This was associated with dysuria. She also developed fever with temperatures as high as 103 and had chills. It was at that point that she decided to come to the emergency room. At present she has pain now in the right upper abdomen but also in the right costovertebral angle area. She has a history of kidney stones with lithotripsy having most recently been performed in August. She had nausea with this but no vomiting. Prior to this she was unaware of her cholelithiasis. She originally had a gastric band placed but that failed and then she had gastric bypass surgery about 3 years ago after which she lost over 200 pounds. She also had an abdominoplasty to remove the redundant skin. Although the amount of food that she eats is limited she has not had to limit what she eats and has no fatty food intolerance. Allergies Allergy/AdvReac Type Severity Reaction Status Date / Time tetanus toxoid, adsorbed Allergy Severe SWOLLRN Verified 01/23/19 17:36 ARM, BLOTCHES Home Medications Home Medications Medication Instructions Recorded Confirmed Type amlodipine 5 mg PO DAILY 01/23/19 01/23/19 History carvedilol 6.25 mg PO BID 01/23/19 01/23/19 History duloxetine 30 mg PO DAILY 01/23/19 01/23/19 History Patient History Medical History History of kidney stones (Chronic) History of spinal stenosis (Chronic) Surgical History Hx of gastric bypass (Chronic) History of adjustable gastric banding Social History Feels Safe at Home: Yes Smoking Status: Never smoker Physical Exam Physical Exam: She has significant right CVA tenderness Constitutional: no acute distress Neck: trachea midline Respiratory: normal respiratory effort, lungs clear to auscultation Cardiovascular: Rate/Rhythm: regular rate and regular rhythm Gastrointestinal (Abdomen): Inspection/Auscultation: abdomen not distended Percussion/Palpation: + abdomen tender and abdomen soft Skin: no rashes, warm and dry Lymphatic: no cervical lymphadenopathy and no subclavicular lymphadenopathy Results & Data Vital Signs (Past 12 Hours) Vital Signs Temp Pulse Resp BP Pulse Ox 01/23/19 19:54 139/103 H 01/23/19 19:50 113 H 20 01/23/19 19:40 111 H 10 L 01/23/19 19:30 98 H 14 139/80 01/23/19 19:20 93 H 14 01/23/19 19:15 108 H 13 128/99 01/23/19 19:10 110 H 20 01/23/19 19:01 98 H 13 109/92 01/23/19 19:00 108 H 18 01/23/19 18:50 98 H 19 01/23/19 18:45 116 H 21 137/102 H 01/23/19 18:40 97 H 8 L 01/23/19 18:30 96 H 15 137/92 01/23/19 18:20 112 H 22 01/23/19 18:16 107 H 12 01/23/19 18:15 121 H 21 127/92 01/23/19 18:14 101 H 16 01/23/19 17:45 99 H 21 126/96 01/23/19 17:40 94 H 12 01/23/19 17:30 103 H 15 133/94 01/23/19 17:20 104 H 22 01/23/19 17:15 109 H 16 131/101 H 01/23/19 17:10 111 H 16 01/23/19 17:00 118 H 20 139/93 01/23/19 16:50 115 H 13 01/23/19 16:45 118 H 18 124/86 01/23/19 16:40 126 H 16 149/104 H 01/23/19 15:51 96 01/23/19 15:40 38.2 C H 116 H 18 120/81 93 Laboratory Results 01/23/19 01/23/19 01/23/19 Range/Units 16:45 16:45 16:16 WBC (4.8-10.8) K/uL RBC (4.2-5.4) M/uL Hgb (12.0-16.0) g/dL Hct (37-47) % MCV (80-100) fL MCH (25-34) pg MCHC (32-36) g/dL RDW Std Deviation (36.4-46.3) fL RDW Coeff of Samara (11.5-14.5) % Plt Count (130-400) K/uL MPV (7.4-10.4) fL Immature Gran % (Auto) % Neut % (Auto) % Lymph % (Auto) % [place] % (Auto) % Eos % (Auto) % Baso % (Auto) % Immature Gran # (Auto) (0.00-0.02) K/uL Neut # (Auto) (1.4-6.5) K/uL Lymph # (Auto) (1.2-3.4) K/uL [place] # (Auto) (0.11-0.59) K/uL Eos # (Auto) (0-0.5) K/uL Baso # (Auto) (0-0.2) K/uL Dohle Bodies PT (9.0-12.0) Seconds INR (0.9-1.1) APTT (21.0-31.0) Seconds PTT Ratio Sodium 135 L (136-145) mmol/L Potassium 3.2 L (3.5-5.1) mmol/L Chloride 101 (98-107) mmol/L Carbon Dioxide 26 (21-32) mmol/L Anion Gap 8.0 (3-11) BUN 28 H (7-18) mg/dl Creatinine 1.26 H (0.6-1.2) mg/dl Est Cr Clr Drug Dosing 57.5 ml/min Est GFR ( Amer) 53.3 Est GFR (Non-Af Amer) 45.9 BUN/Creatinine Ratio 22.5 H (10-20) Glucose 163 H (70-99) mg/dl Lactate (0.4-2.0) mmol/L Calcium 8.8 (8.5-10.1) mg/dl Magnesium 2.1 (1.8-2.4) mg/dl Total Bilirubin 0.7 (0.2-1) mg/dl Direct Bilirubin 0.3 H (0-0.2) mg/dl AST 15 (15-37) U/L ALT 16 (12-78) U/L Alkaline Phosphatase 139 H (45-117) U/L Total Protein 7.1 (6.4-8.2) gm/dl Albumin 2.4 L (3.4-5.0) gm/dl Lipase 25 L (73-393) U/L Urine Color Yellow Urine Appearance Cloudy A (Clear) Urine pH 5.5 (4.5-7.5) Ur Specific [place] 1.015 (1.000-1.030) Urine Protein 2+ H (Negative) Urine Glucose (UA) Negative (Negative) Urine Ketones 1+ H (Negative) Urine Blood 3+ H (Negative) Urine Nitrite Negative (Negative) Urine Bilirubin Negative (Negative) Urine Urobilinogen Negative (Negative) Ur Leukocyte Esterase 3+ H (Negative) Urine WBC (Auto) >30 H (0-5) /hpf Urine RBC (Auto) 10-30 H (0-4) /hpf U Hyaline Cast (Auto) 0 (0-5) /lpf U Epithel Cells (Auto) 20-30 H (0-5) /lpf Urine Bacteria (Auto) 3+ H (Negative) Urine Yeast Not Reportable Influenza Type A (PCR) Neg for Influ A (Neg) Influenza Type B (PCR) Neg for Influ B (Neg) 01/23/19 01/23/19 01/23/19 Range/Units 16:16 16:16 16:16 WBC 13.60 H (4.8-10.8) K/uL RBC 4.55 (4.2-5.4) M/uL Hgb 13.8 (12.0-16.0) g/dL Hct 41.5 (37-47) % MCV 91.2 (80-100) fL MCH 30.3 (25-34) pg MCHC 33.3 (32-36) g/dL RDW Std Deviation 47.4 H (36.4-46.3) fL RDW Coeff of Samara 14.2 (11.5-14.5) % Plt Count 172 (130-400) K/uL MPV 12.6 H (7.4-10.4) fL Immature Gran % (Auto) 0.3 % Neut % (Auto) 84.6 % Lymph % (Auto) 4.4 % [place] % (Auto) 10.5 % Eos % (Auto) 0.1 % Baso % (Auto) 0.1 % Immature Gran # (Auto) 0.04 H (0.00-0.02) K/uL Neut # (Auto) 11.51 H (1.4-6.5) K/uL Lymph # (Auto) 0.60 L (1.2-3.4) K/uL [place] # (Auto) 1.43 H (0.11-0.59) K/uL Eos # (Auto) 0.01 (0-0.5) K/uL Baso # (Auto) 0.01 (0-0.2) K/uL Dohle Bodies 1+ PT 11.0 (9.0-12.0) Seconds INR 1.1 (0.9-1.1) APTT 33.6 H (21.0-31.0) Seconds PTT Ratio 1.2 Sodium (136-145) mmol/L Potassium (3.5-5.1) mmol/L Chloride (98-107) mmol/L Carbon Dioxide (21-32) mmol/L Anion Gap (3-11) BUN (7-18) mg/dl Creatinine (0.6-1.2) mg/dl Est Cr Clr Drug Dosing ml/min Est GFR ( Amer) Est GFR (Non-Af Amer) BUN/Creatinine Ratio (10-20) Glucose (70-99) mg/dl Lactate 1.2 (0.4-2.0) mmol/L Calcium (8.5-10.1) mg/dl Magnesium (1.8-2.4) mg/dl Total Bilirubin (0.2-1) mg/dl Direct Bilirubin (0-0.2) mg/dl AST (15-37) U/L ALT (12-78) U/L Alkaline Phosphatase (45-117) U/L Total Protein (6.4-8.2) gm/dl Albumin (3.4-5.0) gm/dl Lipase (73-393) U/L Urine Color Urine Appearance (Clear) Urine pH (4.5-7.5) Ur Specific [place] (1.000-1.030) Urine Protein (Negative) Urine Glucose (UA) (Negative) Urine Ketones (Negative) Urine Blood (Negative) Urine Nitrite (Negative) Urine Bilirubin (Negative) Urine Urobilinogen (Negative) Ur Leukocyte Esterase (Negative) Urine WBC (Auto) (0-5) /hpf Urine RBC (Auto) (0-4) /hpf U Hyaline Cast (Auto) (0-5) /lpf U Epithel Cells (Auto) (0-5) /lpf Urine Bacteria (Auto) (Negative) Urine Yeast Influenza Type A (PCR) (Neg) Influenza Type B (PCR) (Neg) Diagnostic Findings ABDOMEN AND PELVIS CT WITHOUT CONTRAST CT DOSE: 1252.20 mGy.cm HISTORY: Acute right lower quadrant and right flank pain with fever febrile tachy r cva tenderness rlq pain TECHNIQUE: Multiaxial CT images of the abdomen and pelvis were performed without contrast. A dose lowering technique was utilized adhering to the principles of ALARA. COMPARISON STUDY: CT abdomen and pelvis 04/16/2016 FINDINGS: Lung bases are generally clear. There is no pneumatosis or pneumoperitoneum. Imaged inferior cardiac chambers appear unremarkable. Limited evaluation of the solid abdominal organs without the use of IV contrast. Mild to moderate pneumobilia. Common bile duct is mildly dilated at 8 mm. No choledocholithiasis identified. Mild gallbladder distention with equivocal gallbladder wall thickening, gallbladder sludge and cholelithiasis. Liver is otherwise unremarkable. Spleen and adrenal glands are within normal limits. Moderate analyzed pancreatic atrophy. Nonspecific bilateral perinephric stranding. No renal or ureteral calculi or significant obstructive uropathy identified. There is suggestion of mild bilateral urothelial thickening of the collecting systems. Partial distention of the urinary bladder. Uterus and adnexa are unremarkable. Calcified plaque of the abdominal aorta without aneurysm. No adenopathy. Postoperative changes from prior gastric bypass. No small bowel obstruction. There is no bowel wall thickening. Noninflamed appendix. Postoperative changes of the ventral abdominal wall with mild progressive stranding with slightly increased attenuation of the tissues of the anterior subcutaneous wall. No drainable fluid collection. Degenerative changes of the spine, pelvis and hips. Lumbar levoscoliosis. No acute fracture identified. Grade 1 anterolisthesis L4 on L5 is likely degenerative. IMPRESSION: 1. No renal or ureteral calculi or obstructive uropathy. 2. Nonspecific bilateral perinephric stranding with suggestion of bilateral urothelial thickening, right greater than left. Correlate with urinalysis to exclude infectious etiology. 3. Cholelithiasis with gallbladder sludge,, gallbladder distention and equivocal wall thickening. This finding could be correlated with right upper quadrant abdominal ultrasound and clinical evaluation to exclude acute cholecystitis. 4. Progressive subcutaneous stranding of the lower anterior abdominal wall may be related to scarring from prior surgery with infectious or posttraumatic etiology also within the differential. 5. Additional findings as above. US gallbladder HISTORY: 63 years-old Female ro rere acute right flank and right upper quadrant abdominal pain COMPARISON: CT abdomen and pelvis of same day TECHNIQUE: Multiple real-time sonographic images of the abdominal right upper quadrant were obtained assessing grayscale appearance and color flow FINDINGS: Pneumobilia redemonstrated. Common bile duct is mildly dilated measuring 1.0 cm. No choledocholithiasis identified. No focal hepatic mass lesion. There is mild intrahepatic biliary ductal dilation. Gallbladder distention with moderate cholelithiasis and intraluminal gallbladder sludge. Bladder wall measures in the upper limits of normal at 3 mm. No definite pericholecystic fluid. Sonographic Mccoy sign reported as negative. Imaged right kidney is unremarkable without hydronephrosis. IMPRESSION: 1. Distended gallbladder filled with sludge and cholelithiasis is noted with the wall measuring in the upper limits of normal. There is no definite pericholecystic fluid and the sonographic Mccoy sign was reported as negative. Findings are equivocal for acute cholecystitis. Correlate clinically. 2. Mild intrahepatic and extrahepatic biliary ductal dilation with pneumobilia. Findings may be secondary to incompetent sphincter of Oddi versus gas forming organism with cholangitis. Correlate clinically..
[2019-01-23] MEDS: CARVEDILOL 6.25 MG TAB PO SCH (21:23)
[2019-01-23] MEDS: SODIUM CHLORIDE 0.9% 1000ML 1,000 ML IV SCH (22:29)
[2019-01-23] MEDS: PIPERACILLIN/TAZOBACTAM 4.5 GM in DEXTROSE 5% 100 ML IV SCH (23:20)
[2019-01-24] MEDS ORDERED: METOPROLOL TARTRATE 1 MG/ML VIAL IV PRN (00:42)
[2019-01-24] MEDS ORDERED: Heparin IV Low Dose *NO* Bolus IV SCH (01:02)
[2019-01-24] MEDS: HEPARIN SODIUM/DEXTROSE 25,000 UNITS/500 ML BAG IV SCH (01:54)
[2019-01-24] MEDS ORDERED: PIPERACILL/TAZOBAC CONSULT ACTIVE PRN (03:00)
[2019-01-24] MEDS ORDERED: PIPERACILLIN/TAZOBACTAM 3.375 GM in DEXTROSE 5% 100 ML IV SCH (03:00)
[2019-01-24] MEDS: MoRPHine SULFATE 4 MG/ML 1 ML CARP\\VIAL IV PRN ×2 (03:17→09:37)
[2019-01-24 06:58] LABS: Basophils # (auto) 0.02 K/uL (0-0.2); Basophils % (auto) 0.2 %; Eosinophils # (auto) 0.02 K/uL (0-0.5); Eosinophils % (auto) 0.2 %; Hematocrit (blood only) 38.3 % (37-47); Hemoglobin 12.7 g/dL (12.0-16.0); Immature Granulocytes # (auto) 0.02 K/uL (0.00-0.02); Immature Granulocytes % (auto) 0.2 %; Lymphocytes # (auto) 0.74 K/uL (1.2-3.4); Lymphocytes % (auto) 6.5 %; Mean Corpuscular Hemoglobin 30.5 pg (25-34); Mean Corpuscular Hgb Conc 33.2 g/dL (32-36); Mean Corpuscular Volume 92.1 fL (80-100); Mean Platelet Volume 12.3 fL (7.4-10.4); Monocytes # (auto) 1.97 K/uL (0.11-0.59); Monocytes % (auto) 17.3 %; Neutrophils # (auto) 8.64 K/uL (1.4-6.5); Neutrophils % (auto) 75.6 %; Platelet Count 186 K/uL (130-400); RDW Coefficient of Variation 14.5 % (11.5-14.5); RDW Standard Deviation 48.9 fL (36.4-46.3); Red Blood Count 4.16 M/uL (4.2-5.4); White Blood Count 11.41 K/uL (4.8-10.8)
[2019-01-24 07:18] LABS: Partial Thromboplastin Ratio 1.6; Partial Thromboplastin Time 42.1 Seconds (21.0-31.0)
[2019-01-24 07:41] LABS: Albumin Globulin Ratio 0.5 (0.9-2); BUN Creatinine Ratio 18.8 (10-20); Bilirubin,Total 0.4 mg/dl (0.2-1); Calcium 8.9 mg/dl (8.5-10.1); Est GFR (African American) 58.9; Est GFR (Non-African American) 50.8; Globulin 4.3 gm/dl (2.5-4.0); Potassium 3.7 mmol/L (3.5-5.1); Total Protein 6.3 gm/dl (6.4-8.2)
[2019-01-24] MEDS ORDERED: PERFLUTREN LIPID MICROSPHERE (DEFINITY) IV ONE (07:46)
[2019-01-24] MEDS: PIPERACILLIN/TAZOBACTAM 4.5 GM in DEXTROSE 5% 100 ML IV SCH ×2 (07:58→16:13)
[2019-01-24] MEDS: CARVEDILOL 6.25 MG TAB PO SCH ×2 (07:58→20:06)
[2019-01-24] MEDS: AMLODIPINE BESYLATE 5 MG TAB PO SCH (07:58)
[2019-01-24] MEDS: DULOXETINE HCL 30 MG CAP PO SCH (07:59)
[2019-01-24] MEDS ORDERED: HEPARIN IV BOLUS 3,000 UNITS in SYRINGE 0 ML IV ONE ×2 (08:00→22:00)
--- NOTE | 2019-01-24 09:04 | Cardiology Consultation ---
Date of Consultation January 24, 2019 Assessment & Plan (1) Paroxysmal atrial fibrillation: (2) HTN (hypertension): (3) Cholecystitis: (4) UTI (urinary tract infection): (5) History of kidney stones: New onset atrial fibrillation possibly related to febrile illness, UTI, and possible acute cholecystitis. Heart rates are reasonable at this time. Continue carvedilol 6.25 mg twice daily. Continue intravenous heparin with plans to transition to DOAC at time of discharge. Resting 2D transthoracic echocardiogram pending at this time. Thank you for allowing to participate in the care of your patient. History of Present Illness Reason for Consultation: Atrial fibrillation Requesting Physician: Dr. Argueta Attending Physician: Fariha Argueta DO History of Present Illness 63-year-old female presents to the emergency department with fevers and abdominal discomfort. Concerns regarding acute cholecystitis. Evaluated by surgery. Incidentally, patient found to be atrial fibrillation with borderline rate control. This is a new diagnosis. Reports palpitations beginning at the time of presentation to the ER. Denies recent palpitations or cardiac awareness. No chest discomfort or unusual shortness of breath. Denies orthopnea, PND, or lower extremity edema. No prior history of atrial fibrillation, coronary disease, congestive heart failure, diabetes, or rheumatic fever as a child. Currently resting comfortably lying supine. Notes right-sided abdominal tenderness. Telemetry demonstrates atrial fibrillation with heart rate ranging from 90 to 110 bpm. Patient offers no other concerns/complaints at this time. Allergies Allergy/AdvReac Type Severity Reaction Status Date / Time tetanus toxoid, adsorbed Allergy Severe SWOLLRN Verified 01/23/19 17:36 ARM, BLOTCHES Home Medications Home Medications Medication Instructions Recorded Confirmed Type amlodipine 5 mg PO DAILY 01/23/19 01/23/19 History carvedilol 6.25 mg PO BID 01/23/19 01/23/19 History duloxetine 30 mg PO DAILY 01/23/19 01/23/19 History Patient History Medical History History of kidney stones (Chronic) History of spinal stenosis (Chronic) Surgical History Hx of gastric bypass (Chronic) History of adjustable gastric banding Social History (Reviewed 01/24/19 @ 09:07 by JAVIER Newell Preferred Language: Jamaican Communication Ability: Effective Switch Operator Required: No Beliefs That Will Affect Care: None Current Living Situation: Parent Current Living Situation Comment: home with mother Feels Safe at Home: Yes Safety Concerns: Feels Safe At This Time Smoking Status: Never smoker Do You Dip or Chew Tobacco: No ; Hx Alcohol Use: No Hx Substance Use: No Review of Systems Review of Systems: All systems reviewed & are unremarkable except as noted in HPI & below Physical Exam Physical Exam: General: NAD, AAO x3, well nourished. Overweight. HEENT: Normocephalic. Atraumatic. Conjunctiva pink, no scleral icterus. Neck: No carotid bruits, the carotid upstrokes are brisk. No JVD. No HJR Heart: Irregular rhythm, borderline tachycardic. Normal S-1 and S-2. No murmurs or rub appreciated. PMI is not displaced. No RV heave. Lungs: Clear bilateral without rales , rhonchi, or wheeze. Abdomen: + Right-sided tenderness, no rebound or guarding, hypoactive bowel sounds. No masses or organomegaly. No abdominal bruits. Extremities: No clubbing, cyanosis, or edema. Pulses: radial=2/4, Dorsalis pedis =2/4, posterior tibial=2/4. Neuro: Cranial nerves grossly intact. No focal motor deficit. Results & Data Vital Signs (Past 12 Hours) Vital Signs Temp Pulse Pulse Resp BP Pulse Ox 01/24/19 07:28 37.1 C 94 H 18 128/88 94 01/24/19 03:20 37.4 C 103 H 18 130/93 93 01/24/19 00:27 105 H 01/24/19 00:18 36.7 C 103 H 18 120/69 95 Laboratory Results Laboratory Results - last 24 hr 01/23/19 01/23/19 01/23/19 16:16 16:16 16:16 WBC 13.60 H RBC 4.55 Hgb 13.8 Hct 41.5 MCV 91.2 MCH 30.3 MCHC 33.3 RDW Std Deviation 47.4 H RDW Coeff of Samara 14.2 Plt Count 172 MPV 12.6 H Immature Gran % (Auto) 0.3 Neut % (Auto) 84.6 Lymph % (Auto) 4.4 [place] % (Auto) 10.5 Eos % (Auto) 0.1 Baso % (Auto) 0.1 Immature Gran # (Auto) 0.04 H Neut # (Auto) 11.51 H Lymph # (Auto) 0.60 L [place] # (Auto) 1.43 H Eos # (Auto) 0.01 Baso # (Auto) 0.01 Dohle Bodies 1+ PT 11.0 INR 1.1 APTT 33.6 H PTT Ratio 1.2 Sodium Potassium Chloride Carbon Dioxide Anion Gap BUN Creatinine Est Cr Clr Drug Dosing Est GFR ( Amer) Est GFR (Non-Af Amer) BUN/Creatinine Ratio Glucose Lactate 1.2 Calcium Magnesium Total Bilirubin Direct Bilirubin AST ALT Alkaline Phosphatase Troponin I Total Protein Albumin Globulin Albumin/Globulin Ratio Lipase Urine Color Urine Appearance Urine pH Ur Specific [place] Urine Protein Urine Glucose (UA) Urine Ketones Urine Blood Urine Nitrite Urine Bilirubin Urine Urobilinogen Ur Leukocyte Esterase Urine WBC (Auto) Urine RBC (Auto) U Hyaline Cast (Auto) U Epithel Cells (Auto) Urine Bacteria (Auto) Urine Yeast Influenza Type A (PCR) Influenza Type B (PCR) 01/23/19 01/23/19 01/23/19 16:16 16:45 16:45 WBC RBC Hgb Hct MCV MCH MCHC RDW Std Deviation RDW Coeff of Samara Plt Count MPV Immature Gran % (Auto) Neut % (Auto) Lymph % (Auto) [place] % (Auto) Eos % (Auto) Baso % (Auto) Immature Gran # (Auto) Neut # (Auto) Lymph # (Auto) [place] # (Auto) Eos # (Auto) Baso # (Auto) Dohle Bodies PT INR APTT PTT Ratio Sodium 135 L Potassium 3.2 L Chloride 101 Carbon Dioxide 26 Anion Gap 8.0 BUN 28 H Creatinine 1.26 H Est Cr Clr Drug Dosing 57.5 Est GFR ( Amer) 53.3 Est GFR (Non-Af Amer) 45.9 BUN/Creatinine Ratio 22.5 H Glucose 163 H Lactate Calcium 8.8 Magnesium 2.1 Total Bilirubin 0.7 Direct Bilirubin 0.3 H AST 15 ALT 16 Alkaline Phosphatase 139 H Troponin I Total Protein 7.1 Albumin 2.4 L Globulin Albumin/Globulin Ratio Lipase 25 L Urine Color Yellow Urine Appearance Cloudy A Urine pH 5.5 Ur Specific [place] 1.015 Urine Protein 2+ H Urine Glucose (UA) Negative Urine Ketones 1+ H Urine Blood 3+ H Urine Nitrite Negative Urine Bilirubin Negative Urine Urobilinogen Negative Ur Leukocyte Esterase 3+ H Urine WBC (Auto) >30 H Urine RBC (Auto) 10-30 H U Hyaline Cast (Auto) 0 U Epithel Cells (Auto) 20-30 H Urine Bacteria (Auto) 3+ H Urine Yeast Not Reportable Influenza Type A (PCR) Neg for Influ A Influenza Type B (PCR) Neg for Influ B 01/24/19 01/24/19 01/24/19 01:09 EST 06:47 06:47 WBC 11.41 H RBC 4.16 L Hgb 12.7 Hct 38.3 MCV 92.1 MCH 30.5 MCHC 33.2 RDW Std Deviation 48.9 H RDW Coeff of Samara 14.5 Plt Count 186 MPV 12.3 H Immature Gran % (Auto) 0.2 Neut % (Auto) 75.6 Lymph % (Auto) 6.5 [place] % (Auto) 17.3 Eos % (Auto) 0.2 Baso % (Auto) 0.2 Immature Gran # (Auto) 0.02 Neut # (Auto) 8.64 H Lymph # (Auto) 0.74 L [place] # (Auto) 1.97 H Eos # (Auto) 0.02 Baso # (Auto) 0.02 Dohle Bodies PT INR APTT PTT Ratio Sodium 142 D Potassium 3.7 D Chloride 108 H Carbon Dioxide 25 Anion Gap 8.0 BUN 22 H Creatinine 1.16 Est Cr Clr Drug Dosing 61.0 Est GFR ( Amer) 58.9 Est GFR (Non-Af Amer) 50.8 BUN/Creatinine Ratio 18.8 Glucose 143 H Lactate Calcium 8.9 Magnesium Total Bilirubin 0.4 Direct Bilirubin AST 18 ALT 17 Alkaline Phosphatase 96 Troponin I < 0.015 Total Protein 6.3 L Albumin 2.0 L Globulin 4.3 H Albumin/Globulin Ratio 0.5 L Lipase Urine Color Urine Appearance Urine pH Ur Specific [place] Urine Protein Urine Glucose (UA) Urine Ketones Urine Blood Urine Nitrite Urine Bilirubin Urine Urobilinogen Ur Leukocyte Esterase Urine WBC (Auto) Urine RBC (Auto) U Hyaline Cast (Auto) U Epithel Cells (Auto) Urine Bacteria (Auto) Urine Yeast Influenza Type A (PCR) Influenza Type B (PCR) 01/24/19 01/24/19 06:47 06:47 WBC RBC Hgb Hct MCV MCH MCHC RDW Std Deviation RDW Coeff of Samara Plt Count MPV Immature Gran % (Auto) Neut % (Auto) Lymph % (Auto) [place] % (Auto) Eos % (Auto) Baso % (Auto) Immature Gran # (Auto) Neut # (Auto) Lymph # (Auto) [place] # (Auto) Eos # (Auto) Baso # (Auto) Dohle Bodies PT INR APTT 42.1 H PTT Ratio 1.6 Sodium Potassium Chloride Carbon Dioxide Anion Gap BUN Creatinine Est Cr Clr Drug Dosing Est GFR ( Amer) Est GFR (Non-Af Amer) BUN/Creatinine Ratio Glucose Lactate Calcium Magnesium Total Bilirubin Direct Bilirubin AST ALT Alkaline Phosphatase Troponin I < 0.015 Total Protein Albumin Globulin Albumin/Globulin Ratio Lipase Urine Color Urine Appearance Urine pH Ur Specific [place] Urine Protein Urine Glucose (UA) Urine Ketones Urine Blood Urine Nitrite Urine Bilirubin Urine Urobilinogen Ur Leukocyte Esterase Urine WBC (Auto) Urine RBC (Auto) U Hyaline Cast (Auto) U Epithel Cells (Auto) Urine Bacteria (Auto) Urine Yeast Influenza Type A (PCR) Influenza Type B (PCR) (1) UTI (urinary tract infection) Hematuria presence: with hematuria Urinary tract infection type: site unspecified Qualified Code(s): N39.0 - Urinary tract infection, site not specified; R31.9 - Hematuria, unspecified
--- NOTE | 2019-01-24 11:45 | Surgery Progress Note ---
Date of Service January 24, 2019 Assessment & Plan (1) Pain: This patient has symptomatology that began as CVA tenderness and appears to have a urinary tract infection and on CT scan has fat stranding around the kidney that may be indicative of pyelonephritis. She also has a history of neph rolithiasis. She now has positive blood cultures with gram negative bacilli and positive urine culture with E. coli. Fevers and right CVA/flank pain likely due to urosepsis. She has a mildly dilated biliary tract etiology of which is unclear. The findings on ultrasound and CAT scan are somewhat indicative of a gallbladder issue but more suspicious that her symptoms are related to her tract. Plan: Plan for HIDA scan tomorrow to evaluate gallbladder further for any acute cholecystitis Continue IV abx and pain management Continue medical management Dr. Pratt has seen and examined pt, agrees with above Supervising Physician Co-Signing Physician Notes I interviewed and examined this patient I agree with the above note. She developed positive blood cultures with E. coli. Although this could be a gallbladder source and I am more concerned about a source. Subjective starting to have fevers right back and flank pain no n/v Physical Exam Constitutional: WD/WN, vitals as above no acute distress Gastrointestinal (Abdomen): Inspection/Auscultation: abdomen normal to inspection; abdomen not distended Percussion/Palpation: abdomen soft; abdomen nontender, no guarding and abdomen not rigid Musculoskeletal: + CVA tenderness on right side with right flank pain on palpation minimal RUQ abdominal pain on palpation Skin: no rashes, warm and dry Psychiatric: A+Ox3, euthymic affect Results & Data Vital Signs (Past 12 Hours) Vital Signs Temp Pulse Resp BP Pulse Ox 01/24/19 11:27 36.6 C 103 H 20 140/97 94 01/24/19 10:52 37.4 C 125 H 01/24/19 07:28 37.1 C 94 H 18 128/88 94 01/24/19 03:20 37.4 C 103 H 18 130/93 93 Laboratory Results 01/24/19 01/24/19 01/24/19 Range/Units 06:47 06:47 06:47 WBC (4.8-10.8) K/uL RBC (4.2-5.4) M/uL Hgb (12.0-16.0) g/dL Hct (37-47) % MCV (80-100) fL MCH (25-34) pg MCHC (32-36) g/dL RDW Std Deviation (36.4-46.3) fL RDW Coeff of Samara (11.5-14.5) % Plt Count (130-400) K/uL MPV (7.4-10.4) fL Immature Gran % (Auto) % Neut % (Auto) % Lymph % (Auto) % [place] % (Auto) % Eos % (Auto) % Baso % (Auto) % Immature Gran # (Auto) (0.00-0.02) K/uL Neut # (Auto) (1.4-6.5) K/uL Lymph # (Auto) (1.2-3.4) K/uL [place] # (Auto) (0.11-0.59) K/uL Eos # (Auto) (0-0.5) K/uL Baso # (Auto) (0-0.2) K/uL Dohle Bodies PT (9.0-12.0) Seconds INR (0.9-1.1) APTT 42.1 H (21.0-31.0) Seconds PTT Ratio 1.6 Sodium 142 D (136-145) mmol/L Potassium 3.7 D (3.5-5.1) mmol/L Chloride 108 H (98-107) mmol/L Carbon Dioxide 25 (21-32) mmol/L Anion Gap 8.0 (3-11) BUN 22 H (7-18) mg/dl Creatinine 1.16 (0.6-1.2) mg/dl Est Cr Clr Drug Dosing 61.0 ml/min Est GFR ( Amer) 58.9 Est GFR (Non-Af Amer) 50.8 BUN/Creatinine Ratio 18.8 (10-20) Glucose 143 H (70-99) mg/dl Lactate (0.4-2.0) mmol/L Calcium 8.9 (8.5-10.1) mg/dl Magnesium (1.8-2.4) mg/dl Total Bilirubin 0.4 (0.2-1) mg/dl Direct Bilirubin (0-0.2) mg/dl AST 18 (15-37) U/L ALT 17 (12-78) U/L Alkaline Phosphatase 96 (45-117) U/L Troponin I < 0.015 (0-0.045) ng/ml Total Protein 6.3 L (6.4-8.2) gm/dl Albumin 2.0 L (3.4-5.0) gm/dl Globulin 4.3 H (2.5-4.0) gm/dl Albumin/Globulin Ratio 0.5 L (0.9-2) Lipase (73-393) U/L Urine Color Urine Appearance (Clear) Urine pH (4.5-7.5) Ur Specific [place] (1.000-1.030) Urine Protein (Negative) Urine Glucose (UA) (Negative) Urine Ketones (Negative) Urine Blood (Negative) Urine Nitrite (Negative) Urine Bilirubin (Negative) Urine Urobilinogen (Negative) Ur Leukocyte Esterase (Negative) Urine WBC (Auto) (0-5) /hpf Urine RBC (Auto) (0-4) /hpf U Hyaline Cast (Auto) (0-5) /lpf U Epithel Cells (Auto) (0-5) /lpf Urine Bacteria (Auto) (Negative) Urine Yeast Influenza Type A (PCR) (Neg) Influenza Type B (PCR) (Neg) 01/24/19 01/24/19 01/23/19 Range/Units 06:47 01:09 EST 16:45 WBC 11.41 H (4.8-10.8) K/uL RBC 4.16 L (4.2-5.4) M/uL Hgb 12.7 (12.0-16.0) g/dL Hct 38.3 (37-47) % MCV 92.1 (80-100) fL MCH 30.5 (25-34) pg MCHC 33.2 (32-36) g/dL RDW Std Deviation 48.9 H (36.4-46.3) fL RDW Coeff of Samara 14.5 (11.5-14.5) % Plt Count 186 (130-400) K/uL MPV 12.3 H (7.4-10.4) fL Immature Gran % (Auto) 0.2 % Neut % (Auto) 75.6 % Lymph % (Auto) 6.5 % [place]bert % (Auto) 17.3 % Eos % (Auto) 0.2 % Baso % (Auto) 0.2 % Immature Gran # (Auto) 0.02 (0.00-0.02) K/uL Neut # (Auto) 8.64 H (1.4-6.5) K/uL Lymph # (Auto) 0.74 L (1.2-3.4) K/uL [place] # (Auto) 1.97 H (0.11-0.59) K/uL Eos # (Auto) 0.02 (0-0.5) K/uL Baso # (Auto) 0.02 (0-0.2) K/uL Dohle Bodies PT (9.0-12.0) Seconds INR (0.9-1.1) APTT (21.0-31.0) Seconds PTT Ratio Sodium (136-145) mmol/L Potassium (3.5-5.1) mmol/L Chloride (98-107) mmol/L Carbon Dioxide (21-32) mmol/L Anion Gap (3-11) BUN (7-18) mg/dl Creatinine (0.6-1.2) mg/dl Est Cr Clr Drug Dosing ml/min Est GFR ( Amer) Est GFR (Non-Af Amer) BUN/Creatinine Ratio (10-20) Glucose (70-99) mg/dl Lactate (0.4-2.0) mmol/L Calcium (8.5-10.1) mg/dl Magnesium (1.8-2.4) mg/dl Total Bilirubin (0.2-1) mg/dl Direct Bilirubin (0-0.2) mg/dl AST (15-37) U/L ALT (12-78) U/L Alkaline Phosphatase (45-117) U/L Troponin I < 0.015 (0-0.045) ng/ml Total Protein (6.4-8.2) gm/dl Albumin (3.4-5.0) gm/dl Globulin (2.5-4.0) gm/dl Albumin/Globulin Ratio (0.9-2) Lipase (73-393) U/L Urine Color Urine Appearance (Clear) Urine pH (4.5-7.5) Ur Specific [place] (1.000-1.030) Urine Protein (Negative) Urine Glucose (UA) (Negative) Urine Ketones (Negative) Urine Blood (Negative) Urine Nitrite (Negative) Urine Bilirubin (Negative) Urine Urobilinogen (Negative) Ur Leukocyte Esterase (Negative) Urine WBC (Auto) (0-5) /hpf Urine RBC (Auto) (0-4) /hpf U Hyaline Cast (Auto) (0-5) /lpf U Epithel Cells (Auto) (0-5) /lpf Urine Bacteria (Auto) (Negative) Urine Yeast Influenza Type A (PCR) Neg for Influ A (Neg) Influenza Type B (PCR) Neg for Influ B (Neg) 01/23/19 01/23/19 01/23/19 Range/Units 16:45 16:16 16:16 WBC (4.8-10.8) K/uL RBC (4.2-5.4) M/uL Hgb (12.0-16.0) g/dL Hct (37-47) % MCV (80-100) fL MCH (25-34) pg MCHC (32-36) g/dL RDW Std Deviation (36.4-46.3) fL RDW Coeff of Samara (11.5-14.5) % Plt Count (130-400) K/uL MPV (7.4-10.4) fL Immature Gran % (Auto) % Neut % (Auto) % Lymph % (Auto) % [place] % (Auto) % Eos % (Auto) % Baso % (Auto) % Immature Gran # (Auto) (0.00-0.02) K/uL Neut # (Auto) (1.4-6.5) K/uL Lymph # (Auto) (1.2-3.4) K/uL [place] # (Auto) (0.11-0.59) K/uL Eos # (Auto) (0-0.5) K/uL Baso # (Auto) (0-0.2) K/uL Dohle Bodies PT (9.0-12.0) Seconds INR (0.9-1.1) APTT (21.0-31.0) Seconds PTT Ratio Sodium 135 L (136-145) mmol/L Potassium 3.2 L (3.5-5.1) mmol/L Chloride 101 (98-107) mmol/L Carbon Dioxide 26 (21-32) mmol/L Anion Gap 8.0 (3-11) BUN 28 H (7-18) mg/dl Creatinine 1.26 H (0.6-1.2) mg/dl Est Cr Clr Drug Dosing 57.5 ml/min Est GFR ( Amer) 53.3 Est GFR (Non-Af Amer) 45.9 BUN/Creatinine Ratio 22.5 H (10-20) Glucose 163 H (70-99) mg/dl Lactate 1.2 (0.4-2.0) mmol/L Calcium 8.8 (8.5-10.1) mg/dl Magnesium 2.1 (1.8-2.4) mg/dl Total Bilirubin 0.7 (0.2-1) mg/dl Direct Bilirubin 0.3 H (0-0.2) mg/dl AST 15 (15-37) U/L ALT 16 (12-78) U/L Alkaline Phosphatase 139 H (45-117) U/L Troponin I (0-0.045) ng/ml Total Protein 7.1 (6.4-8.2) gm/dl Albumin 2.4 L (3.4-5.0) gm/dl Globulin (2.5-4.0) gm/dl Albumin/Globulin Ratio (0.9-2) Lipase 25 L (73-393) U/L Urine Color Yellow Urine Appearance Cloudy A (Clear) Urine pH 5.5 (4.5-7.5) Ur Specific [place] 1.015 (1.000-1.030) Urine Protein 2+ H (Negative) Urine Glucose (UA) Negative (Negative) Urine Ketones 1+ H (Negative) Urine Blood 3+ H (Negative) Urine Nitrite Negative (Negative) Urine Bilirubin Negative (Negative) Urine Urobilinogen Negative (Negative) Ur Leukocyte Esterase 3+ H (Negative) Urine WBC (Auto) >30 H (0-5) /hpf Urine RBC (Auto) 10-30 H (0-4) /hpf U Hyaline Cast (Auto) 0 (0-5) /lpf U Epithel Cells (Auto) 20-30 H (0-5) /lpf Urine Bacteria (Auto) 3+ H (Negative) Urine Yeast Not Reportable Influenza Type A (PCR) (Neg) Influenza Type B (PCR) (Neg) 01/23/19 01/23/19 Range/Units 16:16 16:16 WBC 13.60 H (4.8-10.8) K/uL RBC 4.55 (4.2-5.4) M/uL Hgb 13.8 (12.0-16.0) g/dL Hct 41.5 (37-47) % MCV 91.2 (80-100) fL MCH 30.3 (25-34) pg MCHC 33.3 (32-36) g/dL RDW Std Deviation 47.4 H (36.4-46.3) fL RDW Coeff of Samara 14.2 (11.5-14.5) % Plt Count 172 (130-400) K/uL MPV 12.6 H (7.4-10.4) fL Immature Gran % (Auto) 0.3 % Neut % (Auto) 84.6 % Lymph % (Auto) 4.4 % Colbert % (Auto) 10.5 % Eos % (Auto) 0.1 % Baso % (Auto) 0.1 % Immature Gran # (Auto) 0.04 H (0.00-0.02) K/uL Neut # (Auto) 11.51 H (1.4-6.5) K/uL Lymph # (Auto) 0.60 L (1.2-3.4) K/uL [place]bert # (Auto) 1.43 H (0.11-0.59) K/uL Eos # (Auto) 0.01 (0-0.5) K/uL Baso # (Auto) 0.01 (0-0.2) K/uL Dohle Bodies 1+ PT 11.0 (9.0-12.0) Seconds INR 1.1 (0.9-1.1) APTT 33.6 H (21.0-31.0) Seconds PTT Ratio 1.2 Sodium (136-145) mmol/L Potassium (3.5-5.1) mmol/L Chloride (98-107) mmol/L Carbon Dioxide (21-32) mmol/L Anion Gap (3-11) BUN (7-18) mg/dl Creatinine (0.6-1.2) mg/dl Est Cr Clr Drug Dosing ml/min Est GFR ( Amer) Est GFR (Non-Af Amer) BUN/Creatinine Ratio (10-20) Glucose (70-99) mg/dl Lactate (0.4-2.0) mmol/L Calcium (8.5-10.1) mg/dl Magnesium (1.8-2.4) mg/dl Total Bilirubin (0.2-1) mg/dl Direct Bilirubin (0-0.2) mg/dl AST (15-37) U/L ALT (12-78) U/L Alkaline Phosphatase (45-117) U/L Troponin I (0-0.045) ng/ml Total Protein (6.4-8.2) gm/dl Albumin (3.4-5.0) gm/dl Globulin (2.5-4.0) gm/dl Albumin/Globulin Ratio (0.9-2) Lipase (73-393) U/L Urine Color Urine Appearance (Clear) Urine pH (4.5-7.5) Ur Specific [place] (1.000-1.030) Urine Protein (Negative) Urine Glucose (UA) (Negative) Urine Ketones (Negative) Urine Blood (Negative) Urine Nitrite (Negative) Urine Bilirubin (Negative) Urine Urobilinogen (Negative) Ur Leukocyte Esterase (Negative) Urine WBC (Auto) (0-5) /hpf Urine RBC (Auto) (0-4) /hpf U Hyaline Cast (Auto) (0-5) /lpf U Epithel Cells (Auto) (0-5) /lpf Urine Bacteria (Auto) (Negative) Urine Yeast Influenza Type A (PCR) (Neg) Influenza Type B (PCR) (Neg) Diagnostic Findings Microbiology 01/23/19 16:45 Urine Culture - Preliminary Urine,Clean Catch Escherichia coli 01/23/19 17:23 Aerobic Blood Culture - Preliminary Blood Gram negative bacilli Anaerobic Blood Culture - Preliminary Gram negative bacilli 01/23/19 16:16 Anaerobic Blood Culture - Preliminary Blood Gram negative bacilli
--- NOTE | 2019-01-24 12:08 | Hospitalist Progress Note ---
Date of Service January 24, 2019 Assessment & Plan (1) RUQ abdominal pain: Four days of RUQ pain, normal LFTs, tolerating food. CT scan and RUQ US question acute cholecystitis. However, clinical picture is more consistent with acute pyelonephritis. She is improved on Zosyn. Appreciate ID recs in the setting of now bacteremia. (2) Gram-negative septicemia: Covered with Zosyn, ID consult requested. Cont to follow blood cultures. Clinically improved (3) Acute pyelonephritis: Covered with Zosyn empirically. Follow culture results and clinical progress. Interestingly, she has no UTI symptoms. (4) Paroxysmal atrial fibrillation: Rates are reasonable with Coreg per Cardiology. Cont to monitor on telemetry. Expect the rates will improve as the infection is treated. Will plan for DOAC at discharge and close outpatient follow-up with Cardiology. (5) HIGINIO (acute kidney injury): Likely related to illness, resolved. (6) HTN (hypertension): cont amlodipine and carvedilol per home regimen. (7) Depression: Cont duloxetine per home regimen. (8) DVT prophylaxis: Heparin drip Full Dispo-expect to home when medically stable. Fariha Argueta DO [facility] Hospitalist Subjective 63 yo F with fevers, chills, and RUQ and R flank pain. Workup reveals pyelonephritis. CT scan/RUQ imaging was equivocal for possible cholecystitis, however, LFTs are normal. surgery has seen her and will obtain a HIDA in am prior to any surgical recommendations. Will allow her to eat. She is requesting clears with yogurt. She has some nausea but no vomiting. No change in stools. Appears to be improving on the Zosyn. She reports feeling better since admission. Review of Systems Review of Systems: All systems reviewed & are unremarkable except as noted in HPI & below Physical Exam Physical Exam: CONSTITUTIONAL: obese, vitals as above, generally well- appearing EYES: normal conjunctivae, no scleral icterus ENT: MMM RESPIRATORY: clear to auscultation bilaterally, no crackles, rales or wheezes, normal respiratory effort CARDIOVASCULAR: tachy rate and irregular rhythm, S1 and 2 heard without murmurs, gallops or rubs, no JVD, no peripheral edema GASTROINTESTINAL: normal bowel sounds, soft, +RUQ TTP, no epigastric pain, no pelvic pain to palpation. +R CVA tenderness MUSCULOSKELETAL: strength 5/5 throughout, head is normocephalic and atraumatic SKIN: warm and dry NEUROLOGIC: CN 2-12 grossly intact, normal cognition, no gross focal deficits. PSYCHIATRIC: alert cooperative and oriented to person, place and time. Results & Data Vital Signs (Past 12 Hours) Vital Signs Temp Pulse Resp BP Pulse Ox 01/24/19 11:27 36.6 C 103 H 20 140/97 94 01/24/19 10:52 37.4 C 125 H 01/24/19 07:28 37.1 C 94 H 18 128/88 94 01/24/19 03:20 37.4 C 103 H 18 130/93 93 Laboratory Results Short CBC 01/23/19 01/24/19 Range/Units 16:16 06:47 WBC 13.60 H 11.41 H (4.8-10.8) K/uL Hgb 13.8 12.7 (12.0-16.0) g/dL Hct 41.5 38.3 (37-47) % Plt Count 172 186 (130-400) K/uL BMP 01/23/19 01/24/19 16:16 06:47 Sodium 135 L 142 D Potassium 3.2 L 3.7 D Chloride 101 108 H Carbon Dioxide 26 25 BUN 28 H 22 H Creatinine 1.26 H 1.16 Glucose 163 H 143 H Calcium 8.8 8.9 Cardiac Enzymes 01/24/19 01/24/19 Range/Units 01:09 EST 06:47 Troponin I < 0.015 < 0.015 (0-0.045) ng/ml Liver Function 01/23/19 01/24/19 Range/Units 16:16 06:47 Total Bilirubin 0.7 0.4 (0.2-1) mg/dl Direct Bilirubin 0.3 H (0-0.2) mg/dl AST 15 18 (15-37) U/L ALT 16 17 (12-78) U/L Alkaline Phosphatase 139 H 96 (45-117) U/L Albumin 2.4 L 2.0 L (3.4-5.0) gm/dl Urine 01/23/19 Range/Units 16:45 Urine Color Yellow Urine Appearance Cloudy A (Clear) Urine pH 5.5 (4.5-7.5) Ur Specific [place] 1.015 (1.000-1.030) Urine Protein 2+ H (Negative) Urine Glucose (UA) Negative (Negative) Medications Administered Current Inpatient Medications Acetaminophen (Tylenol) 325 mg PO Q6H PRN PRN Reason: Pain or Fever Stop: 02/22/19 18:54 Last Admin: 01/24/19 02:27 Dose: 325 mg Documented by: Amlodipine Besylate (Norvasc) 5 mg PO DAILY [facility] Stop: 02/23/19 08:59 Last Admin: 01/24/19 07:58 Dose: 5 mg Documented by: Carvedilol (Coreg) 6.25 mg PO BID [facility] Stop: 02/22/19 20:59 Last Admin: 01/24/19 07:58 Dose: 6.25 mg Documented by: Duloxetine HCl (Cymbalta) 30 mg PO DAILY [facility] Stop: 02/23/19 08:59 Last Admin: 01/24/19 07:59 Dose: 30 mg Documented by: Sodium Chloride (Nss 1000ml) 1,000 mls @ 60 mls/hr IV .[id number] [facility] Stop: 01/24/19 22:59 Last Admin: 01/23/19 22:29 Dose: 60 mls/hr Documented by: Piperacillin Sod/Tazobactam (Sod 4.5 gm/ Dextrose) 120 mls @ 30 mls/hr IV Q8H [facility]; Protocol Stop: 02/03/19 00:00 Last Infusion: 01/24/19 12:30 Dose: Infused Documented by: Heparin Sodium/Dextrose (Heparin Sodium/Dextrose) 25,000 units in 500 mls @ 21 mls/hr IV .[id number] [facility]; Protocol Stop: 02/23/19 01:14 Last Titration: 01/24/19 07:29 Dose: 1,050 units/hr, 21 mls/hr Documented by: Miscellaneous Information (Consult) 1 ea N/A UD PRN PRN Reason: Consult Stop: 02/23/19 02:59 Morphine Sulfate (Morphine Sulfate) 3 mg IV Q3H PRN PRN Reason: Pain Stop: 02/07/19 02:41 Last Admin: 01/24/19 09:37 Dose: 3 mg Documented by: Oxycodone/Acetaminophen (Percocet 5mg/325mg) 1 tab PO Q6H PRN PRN Reason: Severe Pain Stop: 02/07/19 12:10
[2019-01-24 13:41] LABS: Partial Thromboplastin Ratio 1.4; Partial Thromboplastin Time 39.1 Seconds (21.0-31.0)
[2019-01-24] MEDS ORDERED: HEPARIN IV BOLUS 4,500 UNITS in SYRINGE 0 ML IV ONE (14:30)
[2019-01-24] MEDS: SODIUM CHLORIDE 0.9% 1000ML 1,000 ML IV SCH (14:33)
[2019-01-24] MEDS: OXYCODONE/ACETAMINOPHEN 5mg/325mg TAB PO PRN ×2 (14:37→21:44)
[2019-01-24 20:15] LABS: Partial Thromboplastin Ratio 1.6; Partial Thromboplastin Time 43.2 Seconds (21.0-31.0)
[2019-01-24] MEDS ORDERED: Nursing to Pharmacy Communication ONE (21:35)
[2019-01-25] MEDS: HEPARIN SODIUM/DEXTROSE 25,000 UNITS/500 ML BAG IV SCH ×2 (00:08→18:07)
[2019-01-25] MEDS: PIPERACILLIN/TAZOBACTAM 4.5 GM in DEXTROSE 5% 100 ML IV SCH ×3 (00:11→16:06)
[2019-01-25] MEDS: MoRPHine SULFATE 4 MG/ML 1 ML CARP\\VIAL IV PRN ×2 (01:37→08:14)
[2019-01-25 05:23] LABS: Basophils # (auto) 0.02 K/uL (0-0.2); Basophils % (auto) 0.3 %; Eosinophils # (auto) 0.16 K/uL (0-0.5); Hematocrit (blood only) 37.9 % (37-47); Hemoglobin 12.4 g/dL (12.0-16.0); Immature Granulocytes # (auto) 0.04 K/uL (0.00-0.02); Immature Granulocytes % (auto) 0.5 %; Lymphocytes # (auto) 0.91 K/uL (1.2-3.4); Lymphocytes % (auto) 11.5 %; Mean Corpuscular Hemoglobin 29.9 pg (25-34); Mean Corpuscular Hgb Conc 32.7 g/dL (32-36); Mean Corpuscular Volume 91.3 fL (80-100); Mean Platelet Volume 12.1 fL (7.4-10.4); Neutrophils # (auto) 5.27 K/uL (1.4-6.5); Neutrophils % (auto) 66.7 %; Platelet Count 212 K/uL (130-400); RDW Coefficient of Variation 14.6 % (11.5-14.5); RDW Standard Deviation 49.2 fL (36.4-46.3); Red Blood Count 4.15 M/uL (4.2-5.4)
[2019-01-25 05:34] LABS: Partial Thromboplastin Ratio 1.6; Partial Thromboplastin Time 42.3 Seconds (21.0-31.0)
[2019-01-25 06:02] LABS: BUN Creatinine Ratio 13.5 (10-20); Calcium 8.5 mg/dl (8.5-10.1); Creatinine Clr Calc Pharmacy 72.2 ml/min; Est GFR (African American) 72.2; Est GFR (Non-African American) 62.3; Potassium 3.2 mmol/L (3.5-5.1)
[2019-01-25] MEDS ORDERED: Nursing to Pharmacy Communication ONE (06:16)
[2019-01-25] MEDS ORDERED: HEPARIN IV BOLUS 3,000 UNITS in SYRINGE 0 ML IV ONE ×2 (06:30→15:10)
[2019-01-25] MEDS ORDERED: POTASSIUM CHLORIDE 20 MEQ TABCR PO ONE (07:47)
[2019-01-25] MEDS: AMLODIPINE BESYLATE 5 MG TAB PO SCH (08:18)
[2019-01-25] MEDS: DULOXETINE HCL 30 MG CAP PO SCH (08:18)
[2019-01-25] MEDS: CARVEDILOL 6.25 MG TAB PO SCH (08:18)
--- NOTE | 2019-01-25 09:55 | Surgery Progress Note ---
Date of Service January 25, 2019 Assessment & Plan (1) Pain: This patient has symptomatology that began as CVA tenderness and appears to have a urinary tract infection and on CT scan has fat stranding around the kidney that may be indicative of pyelonephritis. She also has a history of neph rolithiasis. She now has positive blood cultures with gram negative bacilli and positive urine culture with E. coli ESBL. Fevers and right CVA/flank pain likely due to urosepsis. She has a mildly dilated biliary tract etiology of which is unclear. The findings on ultrasound and CAT scan are somewhat indicative of a gallbladder issue but more suspicious that her symptoms are related to her tract. Afebrile last 24 hours, leukocytosis resolved. Pain improving. Plan: HIDA scan today at 12:30 to evaluate gallbladder however likely her RUQ pain is due to pyelonephritis. Will await results. Continue IV abx and pain management Continue medical management Dr. Pratt has seen and examined pt, agrees with above Supervising Physician Co-Signing Physician Notes I interviewed and examined this patient I agree with the above note. Patient most likely pyelonephritis but will await the results of the hepatobiliary scan from today. Subjective feeling slightly better pain is better but still present tolerated clears yesterday, npo for hida scan today no n/v Physical Exam Constitutional: WD/WN, vitals as above not ill appearing Gastrointestinal (Abdomen): Inspection/Auscultation: abdomen normal to inspection and normal bowel sounds; abdomen not distended Percussion/Palpation: + abdomen tender (lateral right upper quadrant more at right flank) and abdomen soft; no guarding and abdomen not rigid Musculoskeletal: Right flank pain and Right CVA tenderness Skin: no rashes, warm and dry Psychiatric: A+Ox3, euthymic affect Results & Data Vital Signs (Past 12 Hours) Vital Signs Temp Pulse Pulse Resp BP Pulse Ox Pulse Ox 01/25/19 07:24 36.9 C 90 18 129/94 94 01/25/19 07:00 107 H 01/25/19 03:00 36.8 C 80 20 141/99 H 96 01/25/19 00:42 96 H 01/24/19 23:27 37.1 C 94 H 18 137/91 94 01/24/19 22:13 95 Laboratory Results 01/25/19 01/25/19 01/25/19 Range/Units 05:15 05:15 05:15 WBC 7.90 (4.8-10.8) K/uL RBC 4.15 L (4.2-5.4) M/uL Hgb 12.4 (12.0-16.0) g/dL Hct 37.9 (37-47) % MCV 91.3 (80-100) fL MCH 29.9 (25-34) pg MCHC 32.7 (32-36) g/dL RDW Std Deviation 49.2 H (36.4-46.3) fL RDW Coeff of Samara 14.6 H (11.5-14.5) % Plt Count 212 (130-400) K/uL MPV 12.1 H (7.4-10.4) fL Immature Gran % (Auto) 0.5 % Neut % (Auto) 66.7 % Lymph % (Auto) 11.5 % [place] % (Auto) 19.0 % Eos % (Auto) 2.0 % Baso % (Auto) 0.3 % Immature Gran # (Auto) 0.04 H (0.00-0.02) K/uL Neut # (Auto) 5.27 (1.4-6.5) K/uL Lymph # (Auto) 0.91 L (1.2-3.4) K/uL [place] # (Auto) 1.50 H (0.11-0.59) K/uL Eos # (Auto) 0.16 (0-0.5) K/uL Baso # (Auto) 0.02 (0-0.2) K/uL APTT 42.3 H (21.0-31.0) Seconds PTT Ratio 1.6 Sodium 141 (136-145) mmol/L Potassium 3.2 L (3.5-5.1) mmol/L Chloride 106 (98-107) mmol/L Carbon Dioxide 31 (21-32) mmol/L Anion Gap 4.0 (3-11) BUN 13 (7-18) mg/dl Creatinine 0.98 (0.6-1.2) mg/dl Est Cr Clr Drug Dosing 72.2 ml/min Est GFR ( Amer) 72.2 Est GFR (Non-Af Amer) 62.3 BUN/Creatinine Ratio 13.5 (10-20) Glucose 140 H (70-99) mg/dl Calcium 8.5 (8.5-10.1) mg/dl Troponin I (0-0.045) ng/ml 01/24/19 01/24/19 01/24/19 Range/Units 19:56 13:20 13:20 WBC (4.8-10.8) K/uL RBC (4.2-5.4) M/uL Hgb (12.0-16.0) g/dL Hct (37-47) % MCV (80-100) fL MCH (25-34) pg MCHC (32-36) g/dL RDW Std Deviation (36.4-46.3) fL RDW Coeff of Samara (11.5-14.5) % Plt Count (130-400) K/uL MPV (7.4-10.4) fL Immature Gran % (Auto) % Neut % (Auto) % Lymph % (Auto) % [place] % (Auto) % Eos % (Auto) % Baso % (Auto) % Immature Gran # (Auto) (0.00-0.02) K/uL Neut # (Auto) (1.4-6.5) K/uL Lymph # (Auto) (1.2-3.4) K/uL [place] # (Auto) (0.11-0.59) K/uL Eos # (Auto) (0-0.5) K/uL Baso # (Auto) (0-0.2) K/uL APTT 43.2 H 39.1 H (21.0-31.0) Seconds PTT Ratio 1.6 1.4 Sodium (136-145) mmol/L Potassium (3.5-5.1) mmol/L Chloride (98-107) mmol/L Carbon Dioxide (21-32) mmol/L Anion Gap (3-11) BUN (7-18) mg/dl Creatinine (0.6-1.2) mg/dl Est Cr Clr Drug Dosing ml/min Est GFR ( Amer) Est GFR (Non-Af Amer) BUN/Creatinine Ratio (10-20) Glucose (70-99) mg/dl Calcium (8.5-10.1) mg/dl Troponin I < 0.015 (0-0.045) ng/ml Diagnostic Findings Microbiology 01/23/19 16:45 Urine Culture - Final Urine,Clean Catch Escherichia coli ESBL 01/23/19 16:16 Aerobic Blood Culture - Preliminary Blood Gram negative bacilli Anaerobic Blood Culture - Preliminary Gram negative bacilli 01/23/19 17:23 Aerobic Blood Culture - Preliminary Blood Gram negative bacilli Anaerobic Blood Culture - Preliminary Gram negative bacilli
--- NOTE | 2019-01-25 10:53 | Infectious Disease Consult ---
Date of Consultation January 25, 2019 Assessment & Plan (1) Gram-negative septicemia: continue zosyn, await ID gnr in blood, await HIDA findings. will repeat blood cultures. will follow. (2) UTI (urinary tract infection): (3) Acute cholecystitis: History of Present Illness Attending Physician: Fariha Argueta DO pt admitted with RUQ pain and fevers x [address] done in ER, distended GB with thick wall and b/l perinephric standing noted, R>L. Temp 38.2 in ER, now afebrile. wbc in ER 13, now 7 . UA > 30 bacteria, and +3 bacteria, was c/o dysuria, now improved. Blood cultures growing GNR, urine culture growing ESBL+ E. coli, she is on zosyn since admission, tolerating well, isolate is sensitive. Ultrasound gb also showing thick wall, for HIDA later today, surgery following. Overall she states she is feeling better. no f/c. abd pain improved, npo, not hungry. no n/v/d. no gu symptoms currently but does state increased frequency due to IVF. tolerating abx well. Allergies Allergy/AdvReac Type Severity Reaction Status Date / Time tetanus toxoid, adsorbed Allergy Severe SWOLLRN Verified 01/23/19 17:36 ARM, BLOTCHES Home Medications Home Medications Medication Instructions Recorded Confirmed Type amlodipine 5 mg PO DAILY 01/23/19 01/23/19 History carvedilol 6.25 mg PO BID 01/23/19 01/23/19 History duloxetine 30 mg PO DAILY 01/23/19 01/23/19 History Patient History Medical History History of kidney stones (Chronic) History of spinal stenosis (Chronic) Surgical History Hx of gastric bypass (Chronic) History of adjustable gastric banding Social History Preferred Language: French Communication Ability: Effective Family Nurse Required: No Beliefs That Will Affect Care: None Current Living Situation: Parent Current Living Situation Comment: home with mother Feels Safe at Home: Yes Safety Concerns: Feels Safe At This Time Smoking Status: Never smoker Do You Dip or Chew Tobacco: No ; Hx Alcohol Use: No Hx Substance Use: No Review of Systems Review of Systems: All systems reviewed & are unremarkable except as noted in HPI & below Physical Exam Constitutional: WD/WN, vitals as above Eyes: PERRL, conjunctivae normal, anicteric sclerae ENMT: external ear and nose normal, oropharynx normal Neck: trachea midline, no thyromegaly Respiratory: normal respiratory effort, lungs clear to auscultation Cardiovascular: RRR, no murmur, no edema Gastrointestinal (Abdomen): normal bowel sounds, soft, nontender, no hepatosplenomegaly Musculoskeletal: no cyanosis or clubbing, extremities motor strength 5/5 Skin: no rashes, warm and dry Psychiatric: A+Ox3, euthymic affect Results & Data Vital Signs (Past 12 Hours) Vital Signs Temp Pulse Pulse Resp BP Pulse Ox 01/25/19 07:24 36.9 C 90 18 129/94 94 01/25/19 07:00 107 H 01/25/19 03:00 36.8 C 80 20 141/99 H 96 01/25/19 00:42 96 H 01/24/19 23:27 37.1 C 94 H 18 137/91 94 Laboratory Results Microbiology 01/23/19 16:45 Urine,Clean Catch Urine Culture - Final Escherichia coli ESBL 01/23/19 16:16 Blood Aerobic Blood Culture - Preliminary Gram negative bacilli 01/23/19 16:16 Blood Anaerobic Blood Culture - Preliminary Gram negative bacilli 01/23/19 17:23 Blood Aerobic Blood Culture - Preliminary Gram negative bacilli 01/23/19 17:23 Blood Anaerobic Blood Culture - Preliminary Gram negative bacilli PG Care Time/CCT Total # of Minutes Spent Total Time Spent with Patient: Total time spent is greater than 50% in coordination of care (as documented) at patient's floor/unit and/or counseling patient: (1) UTI (urinary tract infection) Hematuria presence: with hematuria Urinary tract infection type: site unspecified Qualified Code(s): N39.0 - Urinary tract infection, site not specified; R31.9 - Hematuria, unspecified
--- NOTE | 2019-01-25 11:36 | Cardiology Progress Note ---
Date of Service January 25, 2019 Assessment & Plan (1) Paroxysmal atrial fibrillation: (2) HTN (hypertension): (3) Cholecystitis: (4) UTI (urinary tract infection): (5) History of kidney stones: New onset atrial fibrillation possibly related to febrile illness, UTI, and possible acute cholecystitis. Recommend titration of carvedilol to improve rate control. Increase carvedilol to 12.5mg BID. Reduce amlodipine to 2.5mg daily to avoid hypotension. Continue IV heparin. Transition to DOAC at time of discharge. Continue telemetry monitoring. Subjective Patient seen and examined at bedside. Remains in atrial fibrillation with borderline rate control. Denies palpitations. Abdominal discomfort controlled. Review of Systems Review of Systems: All systems reviewed & are unremarkable except as noted in HPI & below Physical Exam Physical Exam: General: NAD, AAO x3, well nourished. Overweight. HEENT: Normocephalic. Atraumatic. Conjunctiva pink, no scleral icterus. Neck: No carotid bruits, the carotid upstrokes are brisk. No JVD. No HJR Heart: Irregular rhythm, borderline tachycardic. Normal S-1 and S-2. No murmurs or rub appreciated. PMI is not displaced. No RV heave. Lungs: Clear bilateral without rales , rhonchi, or wheeze. Abdomen: + Right-sided tenderness, no rebound or guarding, hypoactive bowel sounds. No masses or organomegaly. No abdominal bruits. Extremities: No clubbing, cyanosis, or edema. Pulses: radial=2/4, Dorsalis pedis =2/4, posterior tibial=2/4. Neuro: Cranial nerves grossly intact. No focal motor deficit. Results & Data Vital Signs (Past 12 Hours) Vital Signs Temp Pulse Pulse Resp BP Pulse Ox 01/25/19 07:24 36.9 C 90 18 129/94 94 01/25/19 07:00 107 H 01/25/19 03:00 36.8 C 80 20 141/99 H 96 01/25/19 00:42 96 H (1) UTI (urinary tract infection) Hematuria presence: with hematuria Urinary tract infection type: site unspecified Qualified Code(s): N39.0 - Urinary tract infection, site not specified; R31.9 - Hematuria, unspecified
[2019-01-25 13:13] LABS: Partial Thromboplastin Ratio 1.5; Partial Thromboplastin Time 41.9 Seconds (21.0-31.0)
--- NOTE | 2019-01-25 14:54 | Hospitalist Progress Note ---
Date of Service January 25, 2019 Assessment & Plan (1) RUQ abdominal pain: Four days of RUQ pain that has resolved with abx and fluids, normal LFTs, tolerating food. CT scan and RUQ US question acute cholecystitis. However, clinical picture is more consistent with acute pyelonephritis. She is improved on Zosyn. HIDA today but doubt she will need to have cholecystectomy. Discussed the case with surgery who is awaiting HIDA results. (2) Gram-negative septicemia: Pt with ESBL E coli. Covered with Zosyn, ID following. Repeat blood cultures drawn today. (3) Acute pyelonephritis: Covered with Zosyn empirically. Follow culture results and clinical progress. Although denied UTI symptoms to me yesterday, she actually reports having some dysuria and urgency prior to arrival. She has responded well to therapy. (4) Paroxysmal atrial fibrillation: Rates are reasonable with Coreg and improvement in infection as expected. Will plan for DOAC at discharge and close outpatient follow-up with Cardiology. Continues on heparin drip for now. (5) HIGINIO (acute kidney injury): Likely related to illness, resolved. (6) HTN (hypertension): cont amlodipine and carvedilol per home regimen. (7) Depression: Cont duloxetine per home regimen. (8) DVT prophylaxis: Heparin drip Full Dispo-expect to home when medically stable. Fariha Argueta DO [facility] Hospitalist Subjective R flank pain resolved and RUQ edwards is minimal. Asking for a regular diet after HIDA today. Afebrile. Otherwise doing well and improved overall. Review of Systems Review of Systems: All systems reviewed & are unremarkable except as noted in HPI & below Physical Exam Physical Exam: CONSTITUTIONAL: obese, vitals as above, generally well- appearing EYES: normal conjunctivae, no scleral icterus ENT: MMM RESPIRATORY: clear to auscultation bilaterally, no crackles, rales or wheezes, normal respiratory effort CARDIOVASCULAR: regular rate and irregular rhythm, S1 and 2 heard without mur murs, gallops or rubs, no JVD, no peripheral edema GASTROINTESTINAL: normal bowel sounds, soft, nontender, no epigastric pain, no pelvic pain to palpation. No CVA tenderness MUSCULOSKELETAL: strength 5/5 throughout, head is normocephalic and atraumatic SKIN: warm and dry NEUROLOGIC: CN 2-12 grossly intact, normal cognition, no gross focal deficits. PSYCHIATRIC: alert cooperative and oriented to person, place and time. Results & Data Vital Signs (Past 12 Hours) Vital Signs Temp Pulse Pulse Resp BP BP Pulse Ox 01/25/19 11:42 36.8 C 91 H 20 135/84 95 01/25/19 07:24 36.9 C 90 18 129/94 94 01/25/19 07:00 107 H 01/25/19 03:00 36.8 C 80 20 141/99 H 96 Laboratory Results Short CBC 01/25/19 Range/Units 05:15 WBC 7.90 (4.8-10.8) K/uL Hgb 12.4 (12.0-16.0) g/dL Hct 37.9 (37-47) % Plt Count 212 (130-400) K/uL BMP 01/25/19 05:15 Sodium 141 Potassium 3.2 L Chloride 106 Carbon Dioxide 31 BUN 13 Creatinine 0.98 Glucose 140 H Calcium 8.5 Medications Administered Current Inpatient Medications Acetaminophen (Tylenol) 325 mg PO Q6H PRN PRN Reason: Pain or Fever Stop: 02/22/19 18:54 Last Admin: 01/24/19 02:27 Dose: 325 mg Documented by: Amlodipine Besylate (Norvasc) 2.5 mg PO DAILY [facility] Stop: 02/25/19 08:59 Carvedilol (Coreg) 12.5 mg PO BID [facility] Stop: 02/24/19 20:59 Duloxetine HCl (Cymbalta) 30 mg PO DAILY [facility] Stop: 02/23/19 08:59 Last Admin: 01/25/19 08:18 Dose: 30 mg Documented by: Piperacillin Sod/Tazobactam (Sod 4.5 gm/ Dextrose) 120 mls @ 30 mls/hr IV Q8H [facility]; Protocol Stop: 02/03/19 00:00 Last Infusion: 01/25/19 12:17 Dose: Infused Documented by: Heparin Sodium/Dextrose (Heparin Sodium/Dextrose) 25,000 units in 500 mls @ 30 mls/hr IV .[id number] [facility]; Protocol Stop: 02/23/19 01:14 Last Titration: 01/25/19 13:49 Dose: 1,500 units/hr, 30 mls/hr Documented by: Heparin Sodium (Porcine) 3,000 (units/ Syringe) 3,000 mls @ 10 mls/min IV [facility] Stop: 01/25/19 19:49 Miscellaneous Information (Consult) 1 ea N/A UD PRN PRN Reason: Consult Stop: 02/23/19 02:59 Morphine Sulfate (Morphine Sulfate) 3 mg IV Q3H PRN PRN Reason: Pain Stop: 02/07/19 02:41 Last Admin: 01/25/19 08:14 Dose: 3 mg Documented by: Oxycodone/Acetaminophen (Percocet 5mg/325mg) 1 tab PO Q6H PRN PRN Reason: Severe Pain Stop: 02/07/19 12:10 Last Admin: 01/24/19 21:44 Dose: 1 tab Documented by:
[2019-01-25] MEDS ORDERED: MoRPHine SULFATE 2 MG/ML CARP ONE (14:55)
--- NOTE | 2019-01-25 16:07 | Nuclear Medicine Report ---
NM hepatobiliary HISTORY: Pain. Nausea. DILATED BILIARY TREE WIT MINIMAL FINDINGS OF KINDRA COMPARISON: None. TECHNIQUE: Immediately following the intravenous administration of 5.0 mCi Tc-99m Choletec, dynamic a nterior abdominal imaging was performed. FINDINGS: Uniform hepatic tracer accumulation is shown. Prompt intrahepatic biliary excretion is seen. The comm on bile duct, and small bowel are all visualized by 20 minutes. The gallbladder is not well seen desp ite morphine administration. IMPRESSION: Findings highly suggestive of acute cholecystitis. The above report was generated using voice recognition software. It may contain grammatical, syntax or spelling errors. Electronically signed by: Mk Hernandez M.D. 01/25/2019 4:06 PM
--- NOTE | 2019-01-25 18:35 | Discharge Summary ---
Date of Service January 25, 2019 Admission HPI Per Admitting Provider This is a 63 year old female who was in usual state of health 2 weeks ago and the developing fevers at least for 4 days and there was association with right upper abdomen pain and in regards to the fever she was was taking aspirin as antipyretic. Patient reports poor oral appetite. Instead of solid food, she has been ingesting liquids. does not associate eating with exacerbating the abdominal pain. denies vomiting. Patient noted to have fever and tachycardia in the ED. patient denies chest pain. no palpitations. her heart rates improved with IV fluids. patient breathing on room air. denies shortness of breath. denies changes in urination or with bowel movements. no headache. no dizziness Admission Exam Per Admitting Provider Constitutional: cooperative Eyes: PERRL, conjunctivae normal, anicteric sclerae EOM intact bilaterally ENMT: external ear and nose normal, oropharynx normal Neck: normal visual inspection Respiratory: normal respiratory effort, lungs clear to auscultation Cardiovascular: Rate/Rhythm: + tachycardic Gastrointestinal (Abdomen): Inspection/Auscultation: abdomen normal to inspection and normal bowel sounds right upper quadrant tenderness to palpation Musculoskeletal: Head/Neck/Chest: normocephalic and head atraumatic Neurologic: PERRL, EOMI, accommodation nl, no face palsy, no dysarthria CN's II-XI intact bilaterally Psychiatric: A+Ox3, euthymic affect Principal Diagnosis Gram negative septicemia Acute pyelonephritis Acute cholecystitis New onset atrial fibrillation Discharge Exam CONSTITUTIONAL: obese, vitals as above, generally well-appearing EYES: normal conjunctivae, no scleral icterus ENT: MMM RESPIRATORY: clear to auscultation bilaterally, no crackles, rales or wheezes, normal respiratory effort CARDIOVASCULAR: regular rate and irregular rhythm, S1 and 2 heard without murmurs, gallops or rubs, no JVD, no peripheral edema GASTROINTESTINAL: normal bowel sounds, soft, nontender, no epigastric pain, no pelvic pain to palpation. No CVA tenderness MUSCULOSKELETAL: strength 5/5 throughout, head is normocephalic and atraumatic SKIN: warm and dry NEUROLOGIC: CN 2-12 grossly intact, normal cognition, no gross focal deficits. PSYCHIATRIC: alert cooperative and oriented to person, place and time. Discharge Data Allergies Allergy/AdvReac Type Severity Reaction Status Date / Time tetanus toxoid, adsorbed Allergy Severe SWOLLRN Verified 01/23/19 17:36 ARM, BLOTCHES Consultations 01/23/19 18:36 ED Decision to Admit Stat 01/23/19 19:02 Consult General Surgery Routine 01/24/19 08:00 Consult Cardiology Routine 01/24/19 09:27 Consult Infectious Diseases Routine 01/25/19 18:33 Burn CD for patient Stat Ordered Studies 01/23/19 15:53 CT abd pelvis wo con Stat 01/23/19 16:51 US gallbladder Stat Hospital Course (1) RUQ abdominal pain: (2) Gram-negative septicemia: (3) Acute pyelonephritis: (4) Paroxysmal atrial fibrillation: (5) HIGINIO (acute kidney injury): (6) HTN (hypertension): 63-year-old female presented to the ER with right flank pain fevers, chills, nausea without vomiting and Reiger's. She suspected a kidney stone but was actually found to have a bladder infection. On exam she had CVA tenderness and right upper quadrant pain. LFTs were not elevated however a CT of the abdomen and pelvis revealed cholelithiasis with sludge and equivocal gallbladder wall thickening. A subsequent ultrasound of the right upper quadrant was performed revealing a distended gallbladder filled with sludge and gallstones. The wall of the gallbladder was measuring in the upper limits of normal. Mccoy sign was negative. Also seen on imaging was mild intrahepatic and extrahepatic biliary ductal dilation with pneumobilia. These findings were reported to be s econdary to an incompetent sphincter of Oddi versus cholangitis. She was placed on telemetry and treatment was started with Zosyn in addition to Rocephin that was already given in the ER for presumed bladder infection. Lab work also revealed mild HIGINIO likely secondary to sepsis. An EKG as part of her work-up found the patient to be in atrial fibrillation which was a new diagnosis for her. Cardiology was consulted and she was placed on a heparin drip and continued on her Coreg which she takes for hypertension. Rates were initially uncontrolled until the antibiotics were able to take effect and she was resuscitated from a sepsis standpoint. On hospital day 2 she underwent an echocardiogram revealing ejection fraction of 60 to 65% with mild concentric left ventricular hypertrophy and a dilated left atrium. Aortic valve sclerosis that is mild without significant aortic stenosis was noted. She remained in atrial fibrillation with the entire hospitalization. Blood culture results sub sequently revealed gram-negative bacilli. The urine culture revealed an ESBL E. coli. Infectious disease was consulted and recommended to continue Zosyn awaiting the identification of the gram-negative bacteria in the blood. General surgery took a more conservative approach initially and ordered a HIDA scan which was performed on 01/25. The HIDA scan was highly suggestive of acute cholecystitis. After the general surgeons discussion with the patient and her family with the new onset atrial fibrillation, gram-negative septicemia that was ongoing and history of multiple abdominal surgeries the decision was made [facility]. At time of discharge she was hemodynamically stable and improved clinically on the Zosyn. She will be transferred via ALS. Close cardiology and primary care follow-up are recommended after discharge from the receiving facility. Current Inpatient Medications: Current Inpatient Medications Acetaminophen (Tylenol) 325 mg PO Q6H PRN PRN Reason: Pain or Fever Stop: 02/22/19 18:54 Last Admin: 01/24/19 02:27 Dose: 325 mg Documented by: Amlodipine Besylate (Norvasc) 2.5 mg PO DAILY [facility] Stop: 02/25/19 08:59 Carvedilol (Coreg) 12.5 mg PO BID [facility] Stop: 02/24/19 20:59 Duloxetine HCl (Cymbalta) 30 mg PO DAILY [facility] Stop: 02/23/19 08:59 Last Admin: 01/25/19 08:18 Dose: 30 mg Documented by: Piperacillin Sod/Tazobactam (Sod 4.5 gm/ Dextrose) 120 mls @ 30 mls/hr IV Q8H [facility]; Protocol Stop: 02/03/19 00:00 Last Admin: 01/25/19 16:06 Dose: 30 mls/hr Documented by: Heparin Sodium/Dextrose (Heparin Sodium/Dextrose) 25,000 units in 500 mls @ 30 mls/hr IV .[id number] [facility]; Protocol Stop: 02/23/19 01:14 Last Admin: 01/25/19 18:07 Dose: 1,500 units/hr, 30 mls/hr Documented by: Miscellaneous Information (Consult) 1 ea N/A UD PRN PRN Reason: Consult Stop: 02/23/19 02:59 Morphine Sulfate (Morphine Sulfate) 3 mg IV Q3H PRN PRN Reason: Pain Stop: 02/07/19 02:41 Last Admin: 01/25/19 08:14 Dose: 3 mg Documented by: Oxycodone/Acetaminophen (Percocet 5mg/325mg) 1 tab PO Q6H PRN PRN Reason: Severe Pain Stop: 02/07/19 12:10 Last Admin: 01/24/19 21:44 Dose: 1 tab Documented by: Total Time Total Time Spent Total Time Spent (In Minutes): 60 Total Time Includes: Examination of the Patient, Discharge Planning, Medication Reconciliation and Communication With Other Providers Discharge Plan Discharge Items Patient Disposition: Transfer Acute Care Hospital Reason For Visit: ACUTE CHOLECYSTITIS Discharge Diagnosis: Gram negative septicemia Acute pyelonephritis Acute cholecystitis New onset atrial fibrillation Condition on Discharge: [facility] Concerns: Regarding new onset atrial fibrillation, patient needs anticoagulation at time of discharge from receiving facility with close (2-4 week) followup with [facility] in the clinic. Activity: Resume your previous activity Non-emergency contact: Primary Care Provider Call non-emergency contact if: you have any medication questions, your symptoms worsen, your pain is not controlled, your pain is worsening, your pain is unusual for you, your pain is concerning for you and you have a fever Follow-up/Referrals: Zhne Boo DO [Neuroradiologist] - Bernrad Dooley MD [Primary Care Provider] - Diet: Regular Addtl Attending Provider Instructions: You are being transferred to [facility]. It is recommended that you follow-up with [facility] in 4 weeks regarding your atrial fibrillation and see your primary care provider within one week of discharge from the receiving facility. It was a pleasure taking care of you! Please call if you have any questions or problems. You can reach a [facility] hospitalist on duty at [facility] 24 hours a day by calling [phone]. Take care of yourself. Fariha Argueta DO [facility] Hospitalist Pending Studies at Discharge: Yes Studies:: Initial blood cultures reveal GNB, still awaiting speciation/sensitivities Repeat blood cultures drawn just prior to discharge. Stand-Alone Forms: [facility] Skilled Items Patient informed of condition?: Yes DNR: No Discharge Level of Care: Other Communicable Disease: No Discharge Prognosis: Stable Lines: None Urinary Catheter: No Medications and DC Order Prescriptions: Continued carvedilol 3.125 mg Tablet 6.25 mg PO BID RF: 0 amlodipine 5 mg Tablet 5 mg PO DAILY RF: 0 duloxetine 30 mg Capsule,Delayed Release(Dr/Ec) 30 mg PO DAILY RF: 0 Discharge Orders: Discharge Order (Routine); Ordered 01/25/19 Ordered By: Fariha Argueta Admission Data Admit Date/Time: 01/23/19 19:06 Attending Provider: Fariha Argueta Admit Provider: Brannon Hodges Primary Care Provider: Bernard Dooley Other Providers: Brannon Hodges ; Mk Pratt ; Zhen Boo ; Licha Carpio
[2019-01-25] MEDS ORDERED: CARVEDILOL 12.5 MG TAB PO SCH (21:00)
[2019-01-25 22:19] LABS: Partial Thromboplastin Ratio 1.6; Partial Thromboplastin Time 42.3 Seconds (21.0-31.0)
[2019-01-25] MEDS ORDERED: HEPARIN IV BOLUS 3,000 UNITS in SYRINGE 0 ML IV STA (22:44)
[2019-01-26] MEDS ORDERED: AMLODIPINE BESYLATE 5 MG TAB PO SCH (09:00)
== END 2019-01-25 23:15 | disposition short-term general hospital (02) | DRG 872 ==
LOC: ED 15:35 → 2N 19:06 → SUATTDRO 19:06 → 2N 19:56 → 3N 01-25 14:51